=== PATIENT | female | born 1955 | race Hispanic/Latino ===

== ENCOUNTER 2017-06-07 15:00 | Inpatient (IN) | payer BC ==
--- NOTE | 2017-06-07 15:25 | ED PDOC ---
Arrival/HPI - General Chief Complaint: Trauma Time Seen by Provider: 06/07/17 15:00 - History of Present Illness Narrative History of Present Illness (Text): 61 y/o F c PMHx neuropathy, constipation p/w R hip pain s/p fall 1 hour ago. Patient tripped over uneven sidewalk onto R side. Denies headstrike, LOC, dizziness, dyspnea. Patient initially refused EMS transport to hospital and kept her ENT follow up after a nasal surgery. After check up, patient's pain was persistent and worse and an ambulance was recalled and patient brought to ED. Past Medical History - Pulmonary Hx Asthma: Yes - Endocrine/Metabolic Hx Diabetes Mellitus Type 1: Yes - Psychiatric Hx Substance Use: No - Anesthesia Hx Anesthesia: No Hx Anesthesia Reactions: No Hx Malignant Hyperthermia: No Family/Social History Family/Social History: Unknown Family HX Smoking Status: Never Smoked Hx Alcohol Use: No Hx Substance Use: No Allergies/Home Meds Allergies/Adverse Reactions: Allergies codeine Allergy (Verified 06/07/17 15:19) ANAPHYLAXIS Sulfa (Sulfonamide Antibiotics) Allergy (Verified 06/07/17 15:19) ANAPHYLAXIS Review of Systems - Physician Review All systems were reviewed & negative as marked: Yes - Review of Systems Constitutional: absent: Fevers Eyes: absent: Vision Changes Respiratory: absent: SOB Cardiovascular: absent: Chest Pain Gastrointestinal: absent: Vomiting Physical Exam - Physical Exam Narrative Physical Exam (Text): Gen: NAD Head: Atraumatic Eyes: No hymphema ENT: MMM Neck: FROM, no midline tenderness Ches: No clavicular tenderness CV: Regular rate, radial pulses 2+ Lungs: No accessory muscle use Abd: Soft, NT Extremities: Pelvis stable. No deformity. FROM knees and ankles. R hip tenderness. Skin: R knee abrasion. Neuro: Alert. Moves all extremities. Vital Signs Temp Pulse Resp BP Pulse Ox 06/07/17 15:08 97.9 F 94 H 18 149/79 100 Medical Decision Making ED Course and Treatment: Patient requested oral pain medications. XR shows R intertroch fracture. Dr. Chavarria accepts patient to her service, recommends Dr. Loya for Ortho. Dr. Loya accepts consultation. - Lab Interpretations Lab Results: 06/07/17 15:00 06/07/17 15:00 Lab Results 06/07/17 15:00: Sodium 135, Potassium 4.4, Chloride 96 L, Carbon Dioxide 32, Anion Gap 12, BUN 17, Creatinine 0.6 L, Est GFR ( Amer) > 60, Est GFR ( Non-Af Amer) > 60, Random Glucose 330 H*, Calcium 9.8, Total Bilirubin 0.5, AST 27, ALT 34, Alkaline Phosphatase 149 H, Total Protein 7.4, Albumin 3.8, Globulin 3.6, Albumin/Globulin Ratio 1.1 06/07/17 15:00: WBC 8.1, RBC 4.83, Hgb 14.3, Hct 42.3, MCV 87.6, MCH 29.6, MCHC 33.8, RDW 13.2, Plt Count 246, MPV 10.2, Gran % 67.1, Lymph % (Auto) 23.9, [place] % (Auto) 5.7, Eos % (Auto) 2.7, Baso % (Auto) 0.6, Gran # 5.43, Lymph # (Auto) 1.9, [place] # (Auto) 0.5, Eos # (Auto) 0.2, Baso # (Auto) 0.05 - RAD Interpretation Radiology Orders: 06/07/17 15:21 HIP MIN 2V W/ PELVIS RT [RAD] Stat 06/07/17 16:32 CHEST PORTABLE [RAD] Stat - Medication Orders Current Medication Orders: Discontinued Medications Acetaminophen (Tylenol 325mg Tab) 650 mg PO STAT STA Stop: 06/07/17 15:22 Last Admin: 06/07/17 16:05 Dose: 650 mg [facility] Pain/Vitals Document 06/07/17 16:05 EQ (Rec: 06/07/17 16:05 EQ [id number]) Pain Reassessment Is This A Pain ReAssessment? No Sleep Is patient sleeping during reassessment? No Presence of Pain Presence of Pain Yes Pain Scale Used Pain Scale Used Numeric Ibuprofen (Motrin Tab) 400 mg PO STAT STA Stop: 06/07/17 15:22 Last Admin: 06/07/17 16:05 Dose: 400 mg [facility] Pain/Vitals Document 06/07/17 16:05 EQ (Rec: 06/07/17 16:05 EQ [id number]) Pain Reassessment Is This A Pain ReAssessment? No Sleep Is patient sleeping during reassessment? No Presence of Pain Presence of Pain Yes Pain Scale Used Pain Scale Used Numeric Disposition/Present on Arrival - Present on Arrival Any Indicators Present on Arrival: No History of DVT/PE: No History of Uncontrolled Diabetes: No Urinary Catheter: No History of Decub. Ulcer: No History Surgical Site Infection Following: None - Disposition Have Diagnosis and Disposition been Completed?: Yes Diagnosis: Fracture, intertrochanteric, right femur Disposition: HOSPITALIZED Disposition Time: 16:25 Patient Plan: Admission Condition: GUARDED Referrals: Devi Chavarria MD [Primary Care Provider] - Follow up with primary Forms: [employer] (Croatian)
[2017-06-07 15:51] LABS: BASO # 0.05 K/mm3 (0.0-2.0); BASO % 0.6 % (0.0-3.0); EOS # 0.2 (0.0-0.7); EOS % 2.7 % (1.5-5.0); GRAN # 5.43 (1.4-6.5); GRAN % 67.1 % (50.0-68.0); HEMOGLOBIN 14.3 g/dL (12.0-16.0); LYMPH # 1.9 (1.2-3.4); LYMPH % 23.9 % (22.0-35.0); MEAN CELL VOLUME 87.6 fl (80.0-105.0); MEAN CORPUSCULAR HEMOGLOBIN 29.6 pg (25.0-35.0); MEAN CORPUSCULAR HGB CONC 33.8 g/dl (31.0-37.0); MEAN PLATELET VOLUME 10.2 fl (7.0-11.0); MONO # 0.5 (0.1-0.6); MONO % 5.7 % (1.0-6.0); RBC 4.83 10^6/uL (3.5-6.1); RED CELL DISTRIBUTION WIDTH 13.2 % (11.5-14.5); WHITE BLOOD COUNT 8.1 10^3/ul (4.5-11.0)
[2017-06-07 16:13] LABS: ALB/GLOB RATIO 1.1 (1.1-1.8); ALBUMIN 3.8 g/dL (3.0-4.8); ALT/SGPT 34 U/L (7-56); AST/SGOT 27 U/L (14-36); BLOOD UREA NITROGEN 17 mg/dL (7-21); CALCIUM 9.8 mg/dL (8.4-10.5); GFR AFRICAN-AMERICAN > 60; GFR NON-AFRICAN AMERICAN > 60
--- NOTE | 2017-06-07 16:29 | RAD ---
PROCEDURE: Right Hip Radiographs. HISTORY: fall, hip pain COMPARISON: None. FINDINGS: BONES: There is a transverse intertrochanteric fracture of the right hip. There is minimal displacement JOINTS: Normal. SOFT TISSUES: Normal. OTHER FINDINGS: None. IMPRESSION: There is a transverse intertrochanteric fracture of the right hip. There is minimal displacement
[2017-06-07] MEDS ORDERED: Morphine 2 mg/ml ISec IVP PRN (17:17)
[2017-06-07 17:48] LABS: INR 0.94 (0.93-1.08); PARTIAL THROMBOPLASTIN TIME 25.3 Seconds (25.1-36.5); PROTHROMBIN TIME 10.7 SECONDS (9.4-12.5)
[2017-06-07] MEDS: Insulin Lispro (humaLOG) MIX 75/25(10 ml) SC SCH (20:30)
[2017-06-07 22:14] VITALS: BMI 32.3
[2017-06-07] MEDS ORDERED: Pneumococcal 23-Valent Vaccine IM ONE (22:14)
[2017-06-07] MEDS ORDERED: Influenza Vaccine 60 mcg/0.5 mL SYR (4YR UP) IM ONE (22:14)
[2017-06-07 22:20] LABS: URINE BILIRUBIN NEGATIVE (NEGATIVE); URINE BLOOD NEGATIVE (NEGATIVE); URINE GLUCOSE (UA) >=1000 mg/dL (NEGATIVE); URINE LEUKOCYTE ESTERASE NEGATIVE Leu/uL (NEGATIVE); URINE PROTEIN NEGATIVE mg/dL (<30 mg/dL); URINE UROBILINOGEN 0.2 E.U./dL (<1 E.U./dL)
[2017-06-07 22:21] LABS: URINE APPEARANCE CLEAR (CLEAR); URINE COLOR YELLOW (YELLOW)
[2017-06-08] MEDS: Insulin Lispro (HUMAlog) HIGH Coverage SC SCH ×6 (01:10→22:00)
--- NOTE | 2017-06-08 01:21 | CON ---
DATE: 06/07/2017 REASON FOR CONSULT: Right hip fracture. HISTORY OF PRESENT ILLNESS: This is a 61-year-old female who is status post fall with right hip pain and inability to ambulate. The patient states that she did have right hip pain in the past. She states that she was walking and the sidewalk was slightly uneven and she tripped falling on her right side. Subsequently, she was brought via EMS to the emergency department for further evaluation and treatment. She denied any other injuries. PAST MEDICAL HISTORY: Significant for diabetes, some peripheral neuropathy, also gastroparesis. PHYSICAL EXAMINATION: GENERAL: This is a female, in no apparent distress. She is awake, alert, and oriented x3. EXTREMITIES: On examination of the right hip, she has pain with passive range of motion of the right hip. Her thigh is soft and nontender. No femoral crepitus is appreciated. Her knee shows no obvious effusion; however, there is a very superficial abrasion along the anterolateral aspect of her knee. She is able to passively tolerate some gentle knee flexion and extension without any significant pain. No gross varus or valgus instability. Her calf is soft and nontender. Motor diop, she is intact distally. On sensation, she has some decreased sensation on the plantar aspect of the foot, which again, she states is consistent with neuropathy. On examination of the left lower extremity, she states that she is able to actively flex the hip without any pain. Her thigh is soft and nontender. In the knee, there is no pain with passive or active range of motion of the left knee. Her calf is soft and nontender. NEUROLOGIC: She has intact motor, but has some decreased soft touch in the plantar aspect of the left foot. LABORATORY DATA: X-rays AP pelvis and right hip x-rays are consistent with a mildly displaced intertrochanteric fracture. Of note, some degenerative changes are also noted. IMPRESSION: Right hip intertrochanteric fracture. PLAN: We discussed the treatment options including open reduction and internal fixation as well as hip replacement. Since she does not want to proceed with hip replacement at this time, she does understand that when the fracture heals that she may continue having pain secondary to the hip arthritis and that in the future hip replacement may be warranted. She understands this and for now she wants to proceed with open reduction and internal fixation of the fracture. At this point, we are going to wait for her to be evaluated by the medical team and we will plan on possibly scheduling her and take her to the operating room tomorrow. For now, we are going to have a Willams catheter inserted, keep her nonweightbearing, pain medication as needed. Madi Loya MD
--- NOTE | 2017-06-08 06:02 | HP ---
HISTORY OF PRESENT ILLNESS: The patient is a 61-year-old known to me from office practice. The patient had a mechanical fall almost by the end of this March. At that point, she was where she was taken to the hospital, had plastic surgeries done for her nasal fracture. Since then, the patient has been having some sinus issues, having shortness of breath, nasal puffiness, difficulty breathing. So, she made an appointment with . She was getting out of his office, walking on the side road that was uneven, she tripped and she fell and sustained fracture of her right femur. She was unable to walk, so ambulance was called. She was brought to emergency room. Denies any dizziness, no loss of consciousness, no headache, no blurry vision. PAST MEDICAL HISTORY: Significant for: 1. Insulin-dependent diabetes. 2. Hypertension. 3. Diabetic neuropathy. 4. History of colonic inertia and chronic constipation. 5. History of recurrent sinus infection. 6. History of recurrent UTI. ALLERGIES: SHE IS ALLERGIC TO CODEINE AND SULFA MEDICATION. MEDICATION AT HOME: She is on insulin, she takes Micardis 40 mg daily, Miralax 17 gm daily, Singulair 10 mg daily. PAST SURGICAL HISTORY: Significant for: 1. Tonsillectomy. 2. History of cholecystectomy. 3. Bilateral feet surgeries. 4. History of right parotid gland surgery. SOCIAL HISTORY: She is , lives with her . Denies smoking, drinking, or alcohol. REVIEW OF SYSTEMS: Significant for chronic constipation, chronic recurrent sinusitis, and recurrent UTI. PHYSICAL EXAMINATION: GENERAL: She is awake and alert, able to communicate. VITAL SIGNS: She is afebrile, pulse 86, respirations 18, blood pressure 114/71. LUNGS: Bilateral good airflow. No rhonchi or crackles. LABORATORY DATA: WBC is 8.1, hemoglobin 14, hematocrit 42, platelets 246. PT 10.7, INR 0.94, PTT 25.3. Chemistry: Sodium 135, potassium 4.4, chloride 96, CO2 of 32, BUN 17, creatinine 0.6. Blood sugar of 303, alkaline phosphatase is 149. Urinalysis is unremarkable. X-ray of chest is unremarkable. X-ray of the hip shows transverse intertrochanteric fracture of the right hip with minimal displacement. ASSESSMENT: 1. Status post fall. 2. Right intertrochanteric fracture. 3. Insulin-dependent diabetes. 4. Hypertension. 5. Chronic constipation. PLAN: The patient is going to be admitted. We will give her analgesic. Was evaluated by Dr. Loya and scheduled to have surgery done tomorrow. Devi Chavarria MD
[2017-06-08] MEDS: Insulin Lispro (humaLOG) MIX 75/25(10 ml) SC SCH (08:00)
--- NOTE | 2017-06-08 09:17 | RAD ---
HISTORY: hip fracture COMPARISON: No prior. FINDINGS: LUNGS: No active pulmonary disease. PLEURA: No significant pleural effusion identified, no pneumothorax apparent. CARDIOVASCULAR: Normal. OSSEOUS STRUCTURES: No significant abnormalities. VISUALIZED UPPER ABDOMEN: Normal. OTHER FINDINGS: None. IMPRESSION: No active disease.
[2017-06-08 09:55] LABS: HEMOGLOBIN 12.5 g/dL (12.0-16.0); MEAN CELL VOLUME 86.8 fl (80.0-105.0); MEAN CORPUSCULAR HEMOGLOBIN 28.5 pg (25.0-35.0); MEAN CORPUSCULAR HGB CONC 32.9 g/dl (31.0-37.0); MEAN PLATELET VOLUME 10.3 fl (7.0-11.0); RBC 4.38 10^6/uL (3.5-6.1); RED CELL DISTRIBUTION WIDTH 13.1 % (11.5-14.5); WHITE BLOOD COUNT 9.7 10^3/ul (4.5-11.0)
[2017-06-08] MEDS ORDERED: POLYETHYLENE GLYCOL 3350 17 GM/Dose PACKET PO SCH (10:00)
[2017-06-08] MEDS ORDERED: Bacitracin 500 Units/gm Oint Foilpak UD ONE (10:05)
[2017-06-08] MEDS: Magnesium Hydroxide Susp 30 ml UD PO PRN (10:08)
[2017-06-08] MEDS: Bisacodyl 5mg EC Tab PO SCH (10:08)
[2017-06-08] MEDS: POLYETHYLENE GLYCOL 3350 17 GM/Dose PACKET PO SCH ×2 (10:08→18:16)
[2017-06-08 10:13] LABS: BLOOD UREA NITROGEN 13 mg/dL (7-21); CALCIUM 9.1 mg/dL (8.4-10.5); GFR AFRICAN-AMERICAN > 60; GFR NON-AFRICAN AMERICAN > 60
[2017-06-08] MEDS: Fluticasone Nasal 50 mcg/Spray NS SCH (10:36)
--- NOTE | 2017-06-08 14:23 | PN ---
DATE: SUBJECTIVE: The patient is 61 years old, seen and examined, lying in bed. Seems to be comfortable. She is worried with the upcoming procedure. Denies any chest pain. No shortness of breath. Right leg hurts upon movement. PHYSICAL EXAMINATION: VITAL SIGNS: She is afebrile, pulse 100, respirations 20, blood pressure 114/71. LUNGS: Bilateral good airflow. No rhonchi or crackle. HEART: S1 and S2 audible. ABDOMEN: Soft. Nontender. No rebound. No guarding. NEUROLOGIC: The patient is awake, alert, oriented, communicative. LABORATORY EXAM: WBC is 9.7, hemoglobin 12.5, hematocrit 38, platelet 218. PT 10.7, INR 0.94. Chemistry: Sodium 136, potassium 4.0, chloride 101, CO2 of 27, BUN 13, creatinine 0.6, blood sugar of 288. Urinalysis is unremarkable. ASSESSMENT: 1. Status post mechanical fall, status right intertrochanteric fracture. 2. Insulin-dependent diabetes. 3. Chronic constipation. 4. Pelvic inertia. PLAN: We will start the patient on Levemir 50 units at bedtime and rest of it will be as needed coverage. The patient is currently n.p.o., evaluated by Cardiology and the patient is going for open reduction and internal fixation today. The patient lives in [place]. She prefers to have rehab place close to [place]. Devi Chavarria MD
[2017-06-08] MEDS ORDERED: Bupivacaine 0.5% Inj(30mL) ONE (14:25)
[2017-06-08] MEDS ORDERED: Propofol 10 mg/ml Inj (20 ML) ONE (14:41)
[2017-06-08] MEDS ORDERED: Midazolam 2 MG/2 ML VIAL ONE (14:41)
[2017-06-08] MEDS ORDERED: Rocuronium 10 mg/ml (5 ml) ONE (14:42)
[2017-06-08] MEDS ORDERED: Lidocaine 2% Inj (20ml) ONE (14:42)
[2017-06-08] MEDS ORDERED: Neostigmine Methylsulfate 3mg/3ml Syringe IV ONE (15:17)
[2017-06-08] MEDS ORDERED: Glycopyrrolate 0.2 mg/ml (2ml vial) ONE (15:18)
[2017-06-08] MEDS ORDERED: HYDROmorphone 1 mg/ml ISec IVP PRN (16:00)
[2017-06-08] MEDS ORDERED: oxyCODONE 10 mg Immediate Release Tab PO PRN (16:10)
[2017-06-08] MEDS ORDERED: HYDROmorphone 0.5 mg/0.5 ml ISec IVP PRN (16:16)
[2017-06-08] MEDS ORDERED: DiphenhydrAMINE 50 mg/ml Inj IVP ONE ×2 (16:20→17:36)
[2017-06-08] MEDS ORDERED: Lactated Ringer's 1,000 ML IV SCH (16:30)
[2017-06-08] MEDS ORDERED: HYDROmorphone 1 mg/ml ISec ONE (16:55)
--- NOTE | 2017-06-08 17:17 | RAD ---
PROCEDURE: Fluoroscopy up to 1 hr. HISTORY: O.R.I.F. RT HIP COMPARISON: None TECHNIQUE: Standard protocol for this study/examination. FINDINGS: Total fluoroscopic time (continuous mode) utilized during the procedure: 104.0 seconds. IMPRESSION: Total exam DLP: (mGy) 17.81
[2017-06-08] MEDS ORDERED: DiphenhydrAMINE 50 mg/ml Inj ONE (17:26)
--- NOTE | 2017-06-08 18:44 | RAD ---
PROCEDURE: Radiographs of the pelvis. HISTORY: s/p R ORIF hip fx patient in PACU COMPARISON: Preoperative study 06/07/2017 FINDINGS: BONES: Satisfactory open reduction internal fixation results proximal right femur. OTHER FINDINGS: None. IMPRESSION: Satisfactory postoperative status.
--- NOTE | 2017-06-08 18:54 | OP ---
PROCEDURE DATE: 06/08/2017 PREOPERATIVE DIAGNOSIS: Right hip intertrochanteric fracture. POSTOPERATIVE DIAGNOSIS: Right hip intertrochanteric fracture. PROCEDURE: Open reduction and internal fixation of right hip fracture with intramedullary nail. SURGEON: Madi Loya MD RN SURGICAL PCU: Dr. Loya was assisted by AMADO Perez. Ms. Brandon was scrubbed and present throughout the entire case and assisted in patient positioning on the fracture table, manipulating the extremity as well as wound closure. TYPE OF ANESTHESIA: General. COMPLICATIONS: None. ESTIMATED BLOOD LOSS: 50 mL. IMPLANT: Biomet trochanteric entry nail. INDICATION FOR PROCEDURE: This is a 61-year-old female who presented status post fall with right hip pain. Clinical and radiographic examination was consistent with a right hip intertrochanteric fracture. Recommendations were for open reduction and internal fixation once the patient was medically optimized. The risks, benefits, and alternatives of the procedure were discussed with the patient and informed consent was obtained. DESCRIPTION OF PROCEDURE: After the surgical site was signed and verified in the preoperative holding area, the patient was taken to the operating room and placed supine on the fracture table. After administration of general anesthesia, the patient received 2 g of Ancef IV. The patient's right lower extremity was positioned in the traction boot. The left lower extremity was gently extended away from the field and well padded. At this point, a C-arm was brought in and closed reduction was done and the fracture was evaluated in both the AP and lateral planes. Satisfied, the right lower extremity was prepped and draped in usual sterile fashion. Bony landmarks were identified about the right hip and approximately 3 cm incision was made proximal to the tip of the greater trochanter. Soft tissue was dissected bluntly down to the tip of the trochanter and the guide pin was placed. The guide pin was then inserted into the medullary canal of the proximal femur and this was confirmed using image intensifier in both the AP and lateral planes. Satisfied, a step drill was then used to drill into the medullary canal of the proximal femur. The guide pin was exchanged for a smooth tip guidewire and at this point, a 22 cm nail was then inserted over the guidewire and reassessed to the appropriate depth. Position of the nail as well as the fracture reduction was confirmed using the image intensifier in both AP and lateral planes. Next, through a small incision on the lateral aspect of the proximal thigh, the hip screw was then placed on the lateral cortex of the proximal femur. A guide pin was then inserted into the roughly center-center position of the femoral head, and this confirmed using the C-arm image intensifier. Satisfied with the patient, the length of our screw was measured and the hole for our hip screw was then drilled to the appropriate length. The screw was then inserted over the guide pin and once it was satisfied with the position of the screw, the screw was locked to the nail by screwing down on the set screw on the proximal aspect of the nail. Again, a fracture reduction position of our hardware was confirmed using image intensifier. Finally, through a small incision, mid aspect of the lateral thigh, the nail was locked statistically. The outrigger jig was removed and final x-rays were taken confirming good fracture reduction and good position of the hardware. All our incisions were then copiously irrigated with antibiotic saline solution and closed in a layered fashion. A sterile dressing was applied. The patient was removed from the fracture table, transferred to the stretcher and taken to the recovery room in stable condition. Madi Loya MD
[2017-06-08] MEDS: Insulin Detemir 100 units/ml Vial (Levemir) SC SCH (21:59)
--- NOTE | 2017-06-09 00:09 | CON ---
DATE: 06/08/2017 LOCATION: Room 562, bed 1. REASON FOR CONSULTATION: Fracture of hip, preop cardiac risk stratification, diabetes mellitus, hypertension, diabetic neuropathy, gastroparesis. HISTORY OF PRESENT ILLNESS: The patient is a 61-year-old female who is known diabetic, hypertension, diabetic neuropathy, history of gastroparesis, admitted with a history that she tripped on the side walk and found to have right hip fracture. The patient denies any chest pain, shortness of breath, or palpitation. She denies any prior history of any cardiac problem. She states she used to see a bookbinding machine operator in [place] and few years back, she had a stress test and even she had a cardiac catheterization in the past and she was told is normal, PAST MEDICAL HISTORY: As mentioned above. The patient is known diabetic, hypertension, gastroparesis. She had a tonsillectomy at age 7, gallbladder surgery 30 years ago, hammertoe bilateral on the feet 15 years ago. She had a parotid gland growth for which she had surgery in 2005. PERSONAL HISTORY: No smoking. Drinks socially, very rarely. ALLERGIES: THE PATIENT IS ALLERGIC TO SULFA DRUGS AND CODEINE. FAMILY HISTORY: Father was known diabetic. HOME MEDICATION: Included Micardis 40 mg daily, Singulair 10 mg daily, insulin Lispro 5 units subcutaneously via insulin pump, insulin glargine, Lantus 70 units subcutaneously a.m. and at bedtime. REVIEW OF SYSTEMS: All the systems reviewed, positives mentioned in the history, others were negative. PHYSICAL EXAMINATION: VITAL SIGNS: Blood pressure 125/57, respirations 19, pulse 100, temperature 98.2. HEENT: Head is normocephalic. Eyes: Pupils normal. Conjunctivae normal. Nose and throat normal. NECK: JVP low. Carotids equal. THORAX: AP diameter normal. LUNGS: Clear. CARDIOVASCULAR: S1, S2. ABDOMEN: Soft, nontender. No organomegaly. Bowel sounds are normal. EXTREMITIES: No clubbing. No cyanosis. LABORATORY DATA: WBC 9.7, hemoglobin 12.5, hematocrit 38.0, and platelets 218. Sodium 136, potassium 4.0, BUN 13, creatinine 0.6, random sugar 280. EKG showed sinus tachycardia at 107 per minute, left anterior hemiblock, poor progression of R and V leads, probably related to left anterior hemiblock. Chest x-ray: Clear lungs, normal cardiovascular status, no active disease. Hip and pelvis x-ray showed transverse intertrochanteric fracture of the right hip with minimal displacement. DIAGNOSES: 1. Fracture of hip, transtrochanteric, right hip. 2. Diabetes mellitus. 3. Hypertension. 4. Peripheral neuropathy. 5. Gastroparesis. PLAN: The patient can go for a hip surgery as a moderate risk. Clinically, cardiac status is stable. The patient has sinus tachycardia on admission EKG, probably related to the pain. The patient is on insulin. We will monitor blood pressure. If it goes up, we will treat. Because the patient is resting at this moment, so pressure may be stayed normal. Continue analgesics. Postop, patient will be on Lovenox. We will follow with you. Iliana Blum MD
[2017-06-09 07:11] LABS: BASO # 0.03 K/mm3 (0.0-2.0); BASO % 0.3 % (0.0-3.0); EOS # 0.4 (0.0-0.7); EOS % 3.6 % (1.5-5.0); GRAN # 8.66 (1.4-6.5); GRAN % 74.3 % (50.0-68.0); HEMOGLOBIN 12.6 g/dL (12.0-16.0); LYMPH # 1.8 (1.2-3.4); LYMPH % 15.4 % (22.0-35.0); MEAN CORPUSCULAR HEMOGLOBIN 29.2 pg (25.0-35.0); MEAN CORPUSCULAR HGB CONC 33.6 g/dl (31.0-37.0); MEAN PLATELET VOLUME 10.2 fl (7.0-11.0); MONO # 0.8 (0.1-0.6); MONO % 6.4 % (1.0-6.0); RBC 4.31 10^6/uL (3.5-6.1); RED CELL DISTRIBUTION WIDTH 13.4 % (11.5-14.5); WHITE BLOOD COUNT 11.7 10^3/ul (4.5-11.0)
[2017-06-09 07:20] LABS: ALBUMIN 3.1 g/dL (3.0-4.8); ALT/SGPT 33 U/L (7-56); AST/SGOT 21 U/L (14-36); BLOOD UREA NITROGEN 12 mg/dL (7-21); CALCIUM 8.9 mg/dL (8.4-10.5); GFR AFRICAN-AMERICAN > 60; GFR NON-AFRICAN AMERICAN > 60
[2017-06-09] MEDS ORDERED: ceFAZolin 2 GM in Sodium Chloride 0.9% 100 ML IVPB SCH ×3 (08:33→14:00)
[2017-06-09] MEDS: Insulin Lispro (HUMAlog) HIGH Coverage SC SCH ×4 (08:55→22:10)
--- NOTE | 2017-06-09 09:19 | CARD ---
APPROVED REPORT EXAM: Two-dimensional and M-mode echocardiogram with Doppler and color Doppler. Other Information Quality : PoorRhythm : INDICATION Pre-Op 2D DIMENSIONS Left Atrium (2D)4.3 (1.6-4.0cm)IVSd1.2 (0.7-1.1cm) LVDd2.7 (3.9-5.9cm)PWd1.2 (0.7-1.1cm) LVDs2.0 (2.5-4.0cm)FS (%) 24.4 % LVEF (%)50.0 (>50%) M-Mode DIMENSIONS Aortic Root3.00 (2.2-3.7cm)Aortic Cusp Exc.1.20 (1.5-2.0cm) Aortic Valve AoV Peak Exlxbvgg178.0cm/Jacinto Peak GR.8mmHg Mitral Valve E/A ratio0.0 TDI E/Lateral E'0.0E/Medial E'0.0 Tricuspid Valve TR Peak [id number] [id number] Peak Gr.17mmHg [id number] LEFT VENTRICLE The left ventricle is normal size. There is normal left ventricular wall thickness. The left ventricular function is normal. The left ventricular ejection fraction is within the normal range. There is normal LV segmental wall motion. RIGHT VENTRICLE The right ventricle is not well visualized. ATRIA The left atrium is mildly dilated. The right atrium is not well visualized. AORTIC VALVE The aortic valve is moderately calcified. MITRAL VALVE The mitral valve is normal in structure. TRICUSPID VALVE The tricuspid valve is not well visualized. There is trace to mild tricuspid regurgitation. PULMONIC VALVE The pulmonic valve is not well visualized. GREAT VESSELS The aortic root is normal in size. PERICARDIAL EFFUSION There is no pericardial effusion. <Conclusion> This is a very limited study done on supine patient with hip fracture. The left ventricle is normal size. There is normal left ventricular wall thickness. The left ventricular function is normal. The aortic valve is moderately calcified. Aortic sclerosis.
--- NOTE | 2017-06-09 10:00 | CP.PCM.PN ---
Subjective - Date & Time of Evaluation Date of Evaluation: 06/09/17 Time of Evaluation: 09:51 - Subjective Subjective: Patient POD#1 s/p ORIF right hip fx with IM nail. Patient is alert and awake and laying comfortably in bed. Patient states pain is controlled. Pt afebrile WBC 11.7 Hgb 12.6 R hip: dressings dry and intact. Patient tolerating active plantar and dorsi flexion of the right ankle with 5/5 strength. Limp length discrepancy is equal. Patient denies any pain with light passive internal and external rotation of the right hip. Calf is soft nontender. NVI distally POD#1 s/p ORIF right hip fx with IM nail Cont DVT prophylaxis Cont PT with WBAT Cont incentive spirometer Will do dressings changes tomorrow Objective - Vital Signs/Intake and Output Vital Signs (last 24 hours): Temp Pulse Resp BP Pulse Ox 98.3 F 108 H 20 112/62 94 L 06/09/17 07:30 06/09/17 07:30 06/09/17 07:30 06/09/17 07:30 06/09/17 07:30 Intake and Output: 06/09/17 06/09/17 06:59 18:59 Intake Total 1380 Output Total 500 Balance 880 - Medications Medications: Current Medications Acetaminophen (Tylenol 325mg Tab) 650 mg PO Q4H PRN PRN Reason: Pain, Mild (1-3) Last Admin: 06/09/17 07:01 Dose: 650 mg Bisacodyl (Dulcolax) 5 mg PO DAILY [facility] Last Admin: 06/08/17 10:08 Dose: 5 mg Enoxaparin Sodium (Lovenox) 40 mg SC 1400 TIN PRN Reason: Protocol Fluticasone Propionate (Flonase) 1 actuation NS DAILY [facility] Last Admin: 06/08/17 10:36 Dose: 1 spr Hydromorphone HCl (Dilaudid) 1 mg IVP Q3H PRN PRN Reason: Pain, severe (8-10) Cefazolin Sodium 2 gm/ Sodium (Chloride) 100 mls @ 200 mls/hr IVPB Q8H TIN PRN Reason: Protocol Stop: 06/09/17 17:30 Insulin Detemir (Levemir) 15 unit SC [facility] Last Admin: 06/08/17 21:59 Dose: 15 unit Insulin Human Lispro (Humalog High) 0 units SC ACHS [facility] PRN Reason: Protocol Last Admin: 06/09/17 08:55 Dose: 7 units Magnesium Hydroxide (Milk Of Magnesia) 30 ml PO DAILY PRN PRN Reason: Indigestion Last Admin: 06/08/17 10:08 Dose: 30 ml Montelukast Sodium (Singulair) 10 mg PO DAILY [facility] Last Admin: 06/08/17 10:11 Dose: 10 mg Morphine Sulfate (Morphine) 2 mg IVP Q4H PRN PRN Reason: Pain, moderate (4-7) Oxycodone HCl (Oxycodone Immediate Release Tab) 10 mg PO Q6H PRN PRN Reason: Pain, moderate (4-7) Polyethylene Glycol (Miralax) 17 gm PO BID [facility] Last Admin: 06/08/17 18:16 Dose: 17 gm Sodium Chloride ([place] Nasal [place]) 0 ml NS Q4H [facility] Last Admin: 06/09/17 08:56 Dose: 1 spr - Labs Labs: 06/09/17 06:20 06/09/17 06:20 PT 10.7 SECONDS (9.4-12.5) 06/07/17 14:30 INR 0.94 (0.93-1.08) 06/07/17 14:30 APTT 25.3 Seconds (25.1-36.5) 06/07/17 14:30
--- NOTE | 2017-06-09 10:50 | CARD ---
APPROVED REPORT EKG Measurement Heart [id number] <Conclusion> Sinus tachycardia Left axis deviation PRWP NSSTW changes Prolonged QTc
[2017-06-09] MEDS: Bisacodyl 5mg EC Tab PO SCH (11:09)
[2017-06-09] MEDS: Fluticasone Nasal 50 mcg/Spray NS SCH (11:09)
[2017-06-09] MEDS: POLYETHYLENE GLYCOL 3350 17 GM/Dose PACKET PO SCH ×2 (11:10→18:03)
[2017-06-09] MEDS: Enoxaparin 40 mg Syringe SC SCH (13:48)
--- NOTE | 2017-06-09 21:21 | PN ---
DATE: 06/09/2017 SUBJECTIVE: The patient has no complaints of any chest pain. No shortness of breath. She states her pain is controlled. She is not taking narcotics. OBJECTIVE: VITAL SIGNS: Temperature is 98.3, pulse of 108, blood pressure is 112/62, respirations 20. GENERAL: The patient is lying in bed, flat, comfortable. HEENT: No oral lesion. Anicteric sclerae. Moist mucosa. NECK: No JVD, adenopathy, or thyromegaly. CARDIOVASCULAR: S1 and S2, regular. No murmurs, rubs, or gallops. LUNGS: Clear to auscultation bilaterally. No wheeze, rales, or rhonchi. ABDOMEN: Bowel sounds are positive, soft, nontender and nondistended. EXTREMITIES: No cyanosis, clubbing or edema. LABORATORY DATA: White count of 11.7, hemoglobin is 12.6. ASSESSMENT: 1. Right intertrochanteric hip fracture, status post open reduction and internal fixation, postop day #1. 2. Diabetes type 2. 3. Chronic constipation. 4. Pelvic inertia. PLAN: The patient is currently comfortable. She is on antibiotics with Ancef. I will discontinue the Ancef as this was for preop. The patient is on bacitracin. She is going to continue with Dilaudid for severe pain if she requires. The patient is on Lovenox for DVT prophylaxis and Levemir for diabetes. She is going to continue with magnesium. She is on MiraLax for constipation. She is on ibuprofen and she does not wish to use narcotics. She is on Singulair. She is going to continue with this. She will most likely need subacute rehab. Alex Jacobson MD
[2017-06-09] MEDS: Insulin Detemir 100 units/ml Vial (Levemir) SC SCH (22:12)
[2017-06-10 07:29] LABS: BASO # 0.05 K/mm3 (0.0-2.0); BASO % 0.6 % (0.0-3.0); EOS # 0.4 (0.0-0.7); EOS % 4.9 % (1.5-5.0); GRAN # 5.84 (1.4-6.5); GRAN % 65.9 % (50.0-68.0); HEMOGLOBIN 11.4 g/dL (12.0-16.0); LYMPH # 1.8 (1.2-3.4); LYMPH % 19.8 % (22.0-35.0); MEAN CELL VOLUME 86.5 fl (80.0-105.0); MEAN CORPUSCULAR HGB CONC 33.5 g/dl (31.0-37.0); MEAN PLATELET VOLUME 10.6 fl (7.0-11.0); MONO # 0.8 (0.1-0.6); MONO % 8.8 % (1.0-6.0); RBC 3.93 10^6/uL (3.5-6.1); RED CELL DISTRIBUTION WIDTH 13.4 % (11.5-14.5); WHITE BLOOD COUNT 8.9 10^3/ul (4.5-11.0)
[2017-06-10 08:03] LABS: ALB/GLOB RATIO 0.9 (1.1-1.8); ALBUMIN 2.9 g/dL (3.0-4.8); ALT/SGPT 30 U/L (7-56); AST/SGOT 16 U/L (14-36); BLOOD UREA NITROGEN 13 mg/dL (7-21); CALCIUM 9.1 mg/dL (8.4-10.5); GFR AFRICAN-AMERICAN > 60; GFR NON-AFRICAN AMERICAN > 60
[2017-06-10] MEDS: Insulin Lispro (HUMAlog) HIGH Coverage SC SCH ×4 (08:03→21:42)
[2017-06-10] MEDS: Fluticasone Nasal 50 mcg/Spray NS SCH (09:29)
[2017-06-10] MEDS: Bacitracin 500 Units/gm Oint Foilpak UD TOP SCH (09:29)
[2017-06-10] MEDS: Bisacodyl 5mg EC Tab PO SCH (09:29)
[2017-06-10] MEDS: POLYETHYLENE GLYCOL 3350 17 GM/Dose PACKET PO SCH ×2 (09:29→17:12)
[2017-06-10] MEDS: Enoxaparin 40 mg Syringe SC SCH (14:30)
--- NOTE | 2017-06-10 16:19 | PN ---
DATE: 06/10/2017 SUBJECTIVE: The patient has no complaints of any chest pain, no shortness of breath. No headaches or dizziness. She says the pain is better controlled. She is asking for tramadol for pain. PHYSICAL EXAMINATION VITAL SIGNS: Temperature is 97.8, pulse of 96, blood pressure 117/72, respirations 21. GENERAL: The patient is lying in bed, flat, comfortable. HEENT: No oral lesion. Anicteric sclerae. Moist mucosa. NECK: No JVD, adenopathy, or thyromegaly. CARDIOVASCULAR: S1 and S2, regular. No murmurs, rubs, or gallops. LUNGS: Clear to auscultation bilaterally. No wheeze, rales, or rhonchi. ABDOMEN: Bowel sounds are positive, soft, nontender and nondistended. EXTREMITIES: No cyanosis, clubbing or edema. LABORATORY DATA: White count of 8.9, hemoglobin 11.4, creatinine is 0.6. ASSESSMENT: 1. Right intertrochanteric hip fracture, status post open reduction and internal fixation postoperative day #2. 2. Diabetes type 2. 3. Chronic constipation. 4. Colonic inertia. PLAN: The patient is on bacitracin. She is going to continue with Dilaudid for pain. She is receiving Levemir for her diabetes type 2. She is on Lovenox for DVT prophylaxis. She is on ibuprofen. She says she does not wish to take morphine. I will discontinue the patient's morphine because she does not want to cause herself to have constipation. She is going to be placed on tramadol for pain. She is going to be on a heart-healthy diet. She will most likely need subacute rehab. Alex Jacobson MD
[2017-06-10] MEDS: Insulin Detemir 100 units/ml Vial (Levemir) SC SCH (21:42)
--- NOTE | 2017-06-11 07:02 | CP.PCM.PN ---
Subjective - Date & Time of Evaluation Date of Evaluation: 06/11/17 Time of Evaluation: 06:15 - Subjective Subjective: Seen and examined by Dr. Blum Reason for consult and follow up: cardiac evaluation for hip surgery, hypertension, diabetes mellitus, diabetic neuropathy,gastroparesis. Subjective: disappointed with physical therapy, however feels okay, denies chest pain, denies shortness of breath, mild tolerable pain at right hip, surgical site. Objective - Vital Signs/Intake and Output Vital Signs (last 24 hours): Temp Pulse Resp BP Pulse Ox 97.9 F 99 H 18 117/72 97 06/10/17 14:30 06/10/17 14:30 06/10/17 14:30 06/10/17 14:30 06/10/17 14:30 Intake and Output: 06/10/17 06/11/17 18:59 06:59 Intake Total 1920 Output Total 1900 Balance 20 - Medications Medications: Current Medications Acetaminophen (Tylenol 325mg Tab) 650 mg PO Q4H PRN PRN Reason: Pain, Mild (1-3) Last Admin: 06/09/17 07:01 Dose: 650 mg Bacitracin (Bacitracin) 1 ea TOP DAILY [facility] Last Admin: 06/10/17 09:29 Dose: 1 ea Bisacodyl (Dulcolax) 5 mg PO DAILY [facility] Last Admin: 06/10/17 09:29 Dose: 5 mg Enoxaparin Sodium (Lovenox) 40 mg SC 1400 TIN PRN Reason: Protocol Last Admin: 06/10/17 14:30 Dose: 40 mg Fluticasone Propionate (Flonase) 1 actuation NS DAILY [facility] Last Admin: 06/10/17 09:29 Dose: 1 spr Hydromorphone HCl (Dilaudid) 1 mg IVP Q3H PRN PRN Reason: Pain, severe (8-10) Ibuprofen (Motrin Tab) 600 mg PO Q4H PRN PRN Reason: Pain, moderate (4-7) Last Admin: 06/11/17 03:53 Dose: 600 mg Insulin Detemir (Levemir) 15 unit SC HS [facility] Last Admin: 06/10/17 21:42 Dose: 15 unit Insulin Human Lispro (Humalog High) 0 units SC ACHS [facility] PRN Reason: Protocol Last Admin: 06/10/17 21:42 Dose: 3 units Magnesium Hydroxide (Milk Of Magnesia) 30 ml PO DAILY PRN PRN Reason: Indigestion Last Admin: 06/08/17 10:08 Dose: 30 ml Montelukast Sodium (Singulair) 10 mg PO DAILY [facility] Last Admin: 06/10/17 09:29 Dose: 10 mg Oxycodone HCl (Oxycodone Immediate Release Tab) 10 mg PO Q6H PRN PRN Reason: Pain, moderate (4-7) Polyethylene Glycol (Miralax) 17 gm PO BID [facility] Last Admin: 06/10/17 17:12 Dose: 17 gm Sodium Chloride ([place] Nasal [place]) 0 ml NS Q4H [facility] Last Admin: 06/11/17 03:51 Dose: Not Given Tramadol HCl (Ultram) 50 mg PO Q6 PRN PRN Reason: Pain, severe (8-10) Last Admin: 06/10/17 17:56 Dose: 50 mg - Labs Labs: 06/10/17 07:00 06/10/17 07:00 PT 10.7 SECONDS (9.4-12.5) 06/07/17 14:30 INR 0.94 (0.93-1.08) 06/07/17 14:30 APTT 25.3 Seconds (25.1-36.5) 06/07/17 14:30 - Constitutional Appears: Well, No Acute Distress - Head Exam Head Exam: NORMAL INSPECTION - Eye Exam Eye Exam: Normal appearance Pupil Exam: NORMAL ACCOMODATION - ENT Exam ENT Exam: Mucous Membranes Moist, Normal Exam - Respiratory Exam Respiratory Exam: Clear to Ausculation Bilateral, NORMAL BREATHING PATTERN - Cardiovascular Exam Cardiovascular Exam: REGULAR RHYTHM, +S1, +S2 - GI/Abdominal Exam GI & Abdominal Exam: Soft, Normal Bowel Sounds - Extremities Exam Extremities Exam: Normal Capillary Refill Additional comments: right hip surgery, dressing dry and intact,no bleeding/hematoma,limited movement - Neurological Exam Neurological Exam: Alert, Awake, Oriented x3 - Psychiatric Exam Psychiatric exam: Normal Affect, Normal Mood - Skin Skin Exam: Intact, Normal Color, Warm Assessment and Plan - Assessment and Plan (Free Text) Assessment: IMPRESSION:Admitted for right hip fracture post fall, status post open reduction and internal fixation of right hip, history of hypertension, insulin dependent diabetes mellitus, diabetic neuropathy, gastroparesis, Plan: Doing well post right hip surgery CArdiac status stable Blood pressure and heart rate well controlled Will monitor and start antihypertensive medications as needed On Lovenox 40 mg daily. Aggresive physical therapy Pain medicine prior to physical therapy Will follow Plan and treatment reviewed with Dr. Blum
[2017-06-11 07:12] LABS: BASO # 0.04 K/mm3 (0.0-2.0); BASO % 0.5 % (0.0-3.0); EOS # 0.3 (0.0-0.7); GRAN # 5.89 (1.4-6.5); GRAN % 69.2 % (50.0-68.0); HEMOGLOBIN 10.7 g/dL (12.0-16.0); LYMPH # 1.4 (1.2-3.4); LYMPH % 16.7 % (22.0-35.0); MEAN CELL VOLUME 86.4 fl (80.0-105.0); MEAN CORPUSCULAR HEMOGLOBIN 28.5 pg (25.0-35.0); MEAN PLATELET VOLUME 10.4 fl (7.0-11.0); MONO # 0.8 (0.1-0.6); MONO % 9.6 % (1.0-6.0); RBC 3.75 10^6/uL (3.5-6.1); RED CELL DISTRIBUTION WIDTH 13.3 % (11.5-14.5); WHITE BLOOD COUNT 8.5 10^3/ul (4.5-11.0)
[2017-06-11 07:56] LABS: ALT/SGPT 24 U/L (7-56); AST/SGOT 18 U/L (14-36); BLOOD UREA NITROGEN 13 mg/dL (7-21); CALCIUM 8.8 mg/dL (8.4-10.5); GFR AFRICAN-AMERICAN > 60; GFR NON-AFRICAN AMERICAN > 60
[2017-06-11 08:07] VITALS: PULSE 98; RESP 20
[2017-06-11] MEDS: Insulin Lispro (HUMAlog) HIGH Coverage SC SCH ×3 (08:30→17:00)
--- NOTE | 2017-06-11 08:34 | CP.PCM.PN ---
Subjective - Date & Time of Evaluation Date of Evaluation: 06/11/17 Time of Evaluation: 08:32 - Subjective Subjective: Pt awake and alert. Pt states she hasn't gotten physical therapy. Afebrile, VSS R hip: dressing changed incisions clean and dry thigh soft, NT grossly NVI (no change from preop) Hg 10.7 POD#3 stable PT D/c planning to rehab Objective - Vital Signs/Intake and Output Vital Signs (last 24 hours): Temp Pulse Resp BP Pulse Ox 98.8 F 98 H 20 137/67 96 06/11/17 07:30 06/11/17 07:30 06/11/17 07:30 06/11/17 07:30 06/11/17 07:30 Intake and Output: 06/11/17 06/11/17 06:59 18:59 Intake Total 1920 Output Total 1900 Balance 20 - Medications Medications: Current Medications Acetaminophen (Tylenol 325mg Tab) 650 mg PO Q4H PRN PRN Reason: Pain, Mild (1-3) Last Admin: 06/09/17 07:01 Dose: 650 mg Bacitracin (Bacitracin) 1 ea TOP DAILY [facility] Last Admin: 06/10/17 09:29 Dose: 1 ea Bisacodyl (Dulcolax) 5 mg PO DAILY [facility] Last Admin: 06/10/17 09:29 Dose: 5 mg Enoxaparin Sodium (Lovenox) 40 mg SC 1400 TIN PRN Reason: Protocol Last Admin: 06/10/17 14:30 Dose: 40 mg Fluticasone Propionate (Flonase) 1 actuation NS DAILY [facility] Last Admin: 06/10/17 09:29 Dose: 1 spr Hydromorphone HCl (Dilaudid) 1 mg IVP Q3H PRN PRN Reason: Pain, severe (8-10) Ibuprofen (Motrin Tab) 600 mg PO Q4H PRN PRN Reason: Pain, moderate (4-7) Last Admin: 06/11/17 03:53 Dose: 600 mg Insulin Detemir (Levemir) 15 unit SC HS [facility] Last Admin: 06/10/17 21:42 Dose: 15 unit Insulin Human Lispro (Humalog High) 0 units SC ACHS [facility] PRN Reason: Protocol Last Admin: 06/10/17 21:42 Dose: 3 units Magnesium Hydroxide (Milk Of Magnesia) 30 ml PO DAILY PRN PRN Reason: Indigestion Last Admin: 06/08/17 10:08 Dose: 30 ml Montelukast Sodium (Singulair) 10 mg PO DAILY [facility] Last Admin: 06/10/17 09:29 Dose: 10 mg Oxycodone HCl (Oxycodone Immediate Release Tab) 10 mg PO Q6H PRN PRN Reason: Pain, moderate (4-7) Polyethylene Glycol (Miralax) 17 gm PO BID [facility] Last Admin: 06/10/17 17:12 Dose: 17 gm Sodium Chloride ([place] Nasal [place]) 0 ml NS Q4H [facility] Last Admin: 06/11/17 03:51 Dose: Not Given Tramadol HCl (Ultram) 50 mg PO Q6 PRN PRN Reason: Pain, severe (8-10) Last Admin: 06/10/17 17:56 Dose: 50 mg - Labs Labs: 06/11/17 06:30 06/11/17 06:30 PT 10.7 SECONDS (9.4-12.5) 06/07/17 14:30 INR 0.94 (0.93-1.08) 06/07/17 14:30 APTT 25.3 Seconds (25.1-36.5) 06/07/17 14:30
[2017-06-11] MEDS: Bacitracin 500 Units/gm Oint Foilpak UD TOP SCH (09:28)
[2017-06-11] MEDS: POLYETHYLENE GLYCOL 3350 17 GM/Dose PACKET PO SCH (09:28)
[2017-06-11] MEDS: Magnesium Hydroxide Susp 30 ml UD PO PRN (09:28)
[2017-06-11] MEDS: Bisacodyl 5mg EC Tab PO SCH (09:29)
[2017-06-11] MEDS: Fluticasone Nasal 50 mcg/Spray NS SCH (09:29)
[2017-06-11] MEDS: Enoxaparin 40 mg Syringe SC SCH (14:01)
[2017-06-11] MEDS ORDERED: Influenza Vaccine 60 mcg/0.5 mL SYR (4YR UP) IM ONE (16:18)
[2017-06-11 16:24] VITALS: BP 116/54; TEMP 97.8; O2SAT 98
--- NOTE | 2017-06-12 04:56 | DS ---
HISTORY OF PRESENT ILLNESS: Patient is a 62-year-old female who had come to the hospital and was found to have a fracture of the right hip. The patient went to the OR with Dr. Loya and had an ORIF done. She feels well. The patient had a Willams that was taken out 2 days ago, but went into urinary retention. A Willams was placed again. We will attempt to take out the Willams this morning. She was seen by Dr. Loya and cleared for discharge. I did speak to the patient's and the patient. She is interested in going to [facility] for her rehab. I did speak to the human services case manager to help coordinate that. The patient has no complaints of any headaches or dizziness. PHYSICAL EXAMINATION: VITAL SIGNS: Temperature is 98.8, pulse of 98, blood pressure is 137/67, respirations 20, O2 saturation 96%. GENERAL: The patient is lying in bed, flat, comfortable. HEENT: No oral lesion. Anicteric sclerae. Moist mucosa. NECK: No JVD, adenopathy, or thyromegaly. CARDIOVASCULAR: S1 and S2, regular. No murmurs, rubs, or gallops. LUNGS: Clear to auscultation bilaterally. No wheeze, rales, or rhonchi. ABDOMEN: Bowel sounds are positive, soft, nontender and nondistended. EXTREMITIES: No cyanosis, clubbing or edema. ASSESSMENT: 1. Right intertrochanteric hip fracture, status post open reduction and internal fixation, postop day #3. 2. Diabetes type 2. 3. Chronic constipation. 4. Colonic inertia. PLAN: The patient is currently comfortable, on bacitracin. The patient does not wish to take any narcotics. She is on insulin for her diabetes. She is on Lovenox for her DVT prophylaxis. She is receiving MiraLax for her constipation. She is on Singulair. The patient is on tramadol and Tylenol for pain. CONDITION: Stable. ACTIVITIES: Increase as tolerated. Alex Jacobson MD
== END 2017-06-11 18:46 | DRG 482 ==
LOC: ED 15:00 → ERH 16:32 → 5RNO 21:31
PROVIDERS: ADMIT Internal Medicine; ATTEND Internal Medicine
PROC: 0QS606Z Reposition Right Upper Femur with Intramedullary Internal Fixation Device, Open Approach (ICD-10-PCS; principal; 2017-06-08 14:30)
PROC: 0T9B70Z Drainage of Bladder with Drainage Device, Via Natural or Artificial Opening (ICD-10-PCS; 2017-06-11)
DX: S72.141A Displaced intertrochanteric fracture of right femur, initial encounter for closed fracture (principal); E11.42 Type 2 diabetes mellitus with diabetic polyneuropathy; E11.43 Type 2 diabetes mellitus with diabetic autonomic (poly)neuropathy; K31.84 Gastroparesis; I10 Essential (primary) hypertension; K59.09 Other constipation; R33.9 Retention of urine, unspecified; K63.89 Other specified diseases of intestine; Y93.01 Activity, walking, marching and hiking; W01.0XXA Fall on same level from slipping, tripping and stumbling without subsequent striking against object, initial encounter; Y92.480 Sidewalk as the place of occurrence of the external cause; Z79.4 Long term (current) use of insulin; Z88.5 Allergy status to narcotic agent; Z88.2 Allergy status to sulfonamides

== ENCOUNTER 2017-09-04 15:39 | Inpatient (IN) | payer BC ==
[2017-09-04 15:50] VITALS: BMI 34.9
--- NOTE | 2017-09-04 16:45 | ED PDOC ---
Arrival/HPI - History of Present Illness Time/Duration: > month Symptom Onset: Sudden Symptom Course: Unchanged <Tristan Trinidad - Last Filed: 09/04/17 17:51> <Shaheed Montalvo - Last Filed: 09/04/17 18:35> - General Chief Complaint: Female Genitourinary Time Seen by Provider: 09/04/17 16:14 - History of Present Illness Narrative History of Present Illness (Text): 09/04/17 16:38 Pt is a 62 yo F with PMH of DM, gastroparesis, diabetic neuropathy, asthma, recurrent UTI, urinary incontinence and hip fracture presents to emergency department as instructed by her PMD for failed outpatient treatment for recurrent UTI. Patient states that she was at subacute rehab about 2-3 months ago for hip fracture. During her stay, she stated that her diaper was often left unchanged and due to this developed a UTI. Patient was given multiple PO antibiotics over the last 2 months, but UTI did not resolve. Patient stated that according to her PMD her urine cultures resistant to multiple antibiotics and requested that she proceed to the Emergency department to be admitted for IV antibiotics. Patient admits to dysuria and odd smell in her urine, but states that her urine is clear. Patient denies hematuria, pyruia, discharge, or abdominal/pelvic pain. Patient also denies CP, SOB, Nausea, vomiting, abdominal pain, fever, chills, HAAS, or dizziness. PMD: Tristan Maldonado) Past Medical History - Infectious Disease Hx of Infectious Diseases: None - Reproductive Menopause: Yes - Cardiac Hx Cardiac Disorders: Yes Hx Hypertension: Yes - Pulmonary Hx Respiratory Disorders: Yes Hx Asthma: Yes - Neurological Hx Neurological Disorder: No - HEENT Hx HEENT Disorder: Yes (eyeglasses) - Renal Hx Renal Disorder: No - Endocrine/Metabolic Hx Endocrine Disorders: Yes Hx Diabetes Mellitus Type 1: Yes - Hematological/Oncological Hx Blood Disorders: No - Integumentary Hx Dermatological Disorder: Yes Other/Comment: abrasions to right elbow and r knee - Musculoskeletal/Rheumatological Hx Musculoskeletal Disorders: Yes Hx Falls: Yes (january 2017 and today) - Gastrointestinal Hx Gastrointestinal Disorders: Yes Other/Comment: no bowel motility, needs to take mom or miralax or have colonic cleansing once a week - Genitourinary/Gynecological Hx Genitourinary Disorders: No - Psychiatric Hx Psychophysiologic Disorder: No Hx Substance Use: No - Anesthesia Hx Anesthesia Reactions: No Hx Malignant Hyperthermia: No <Tristan Trinidad - Last Filed: 09/04/17 17:51> Family/Social History Family/Social History: No Known Family HX Smoking Status: Never Smoked Hx Alcohol Use: No Hx Substance Use: No <Tristan Trinidad - Last Filed: 09/04/17 17:51> Allergies/Home Meds <Tristan Trinidad - Last Filed: 09/04/17 17:51> <Shaheed Montalvo - Last Filed: 09/04/17 18:35> Allergies/Adverse Reactions: Allergies codeine Allergy (Verified 09/04/17 15:50) ANAPHYLAXIS Sulfa (Sulfonamide Antibiotics) Allergy (Verified 09/04/17 15:50) ANAPHYLAXIS Home Medications: Home Meds Medication Instructions Recorded Confirmed Insulin Glargine, Recombina 70 unit SC [facility] 06/07/17 09/04/17 [Lantus] Insulin Lispro [humALOG] 5 units SQ Q1 [facility] via insulin pump 06/07/17 09/04/17 Montelukast [Singulair] 10 mg PO DAILY 06/07/17 09/04/17 Telmisartan [Micardis] 40 mg PO DAILY 06/07/17 09/04/17 Gabapentin [Neurontin] 200 mg PO DAILY 09/04/17 09/04/17 Review of Systems - Physician Review All systems were reviewed & negative as marked: Yes (12 point ROS reviewed and is negative other than what is stated in HPI.) <Tristan Trinidad - Last Filed: 09/04/17 17:51> Physical Exam Vital Signs Reviewed: Yes Temperature: Afebrile Blood Pressure: Normal Pulse: Regular Respiratory Rate: Normal Appearance: Positive for: Non-Toxic Pain Distress: None Mental Status: Positive for: Alert and Oriented X 3 Finger Stick Blood Glucose: 113 - Systems Exam Head: Present: Atraumatic, Normocephalic Pupils: Present: PERRL Extroacular Muscles: Present: EOMI Conjunctiva: Present: Normal Mouth: Present: Moist Mucous Membranes Neck: Present: Normal Range of Motion Respiratory/Chest: Present: Clear to Auscultation. No: Wheezes, Rales, Rhonchi Cardiovascular: Present: Regular Rate and Rhythm, Normal S1, S2. No: Murmurs, Rub, Gallop Abdomen: No: Tenderness, Distention, Rebound, Guarding Upper Extremity: Present: Normal Inspection. No: Cyanosis, Edema Lower Extremity: Present: Normal Inspection. No: Edema Neurological: Present: GCS=15, CN II-XII Intact, Speech Normal Skin: Present: Warm, Dry, Normal Color. No: Rashes Psychiatric: Present: Alert, Oriented x 3, Normal Insight, Normal Concentration <Tristan Trinidad - Last Filed: 09/04/17 17:51> Vital Signs Temp Pulse Resp BP Pulse Ox 09/04/17 15:53 98.3 F 87 19 117/67 95 Medical Decision Making <Tristan Trinidad - Last Filed: 09/04/17 17:51> <Shaheed Montalvo - Last Filed: 09/04/17 18:35> ED Course and Treatment: 09/04/17 16:55 62 yo F presents to Emergency department as instructed by her PMD for failed outpatient treatment due multi-drug resistant organism UTI. Plan: - CBC, CMP - Coags - Blood, urine cultures - EKG - CXR - UA - VBG shock - Reassess and disposition 09/04/17 16:58 Dr. Chavarria was contacted to discuss patient. Outpatient UA and culture from 08/31 were faxed, which showed positive UTI. Urine culture was positive for Pseudomonas aeruginosa that is resistant to aztreonam, ciprofloxacin, cefepime, gentamicin, and levofloxacin. Sensitive to amikacin (BLAISE <=16), ceftazidime (4) , imipenem (2), and zosyn (32). Dr. Chavarria agrees with plan for IV antibiotics and admission under her service. Patient will be admitted to med/surg. 09/04/17 17:24 CXR reviewed by radiologist showed no acute pulmonary disease. (Tristan Trinidad) 09/04/17 18:31 Patient seen and evaluated with medical leader. I examined patient and reviewed history with patient. Patient has history of urinary tract infections, recurrent. She has recently been treated with oral antibiotics, although UTI persists and recent sensitivites obtained by Dr. Chavarria reveal resistance to multiple oral antibiotics. Patient will be initiated on iv antibiotics after review of sensitivites. Patient currently afebrile. Not currently septic. No acute abdominal pain or back pain. Case d/w Dr. Chavarria, will admit patient to her service. (Shaheed Montalvo) - Lab Interpretations Lab Results: 09/04/17 17:19 09/04/17 17:19 Lab Results 09/04/17 17:54: Urine Color Light yellow, Urine Appearance Clear, Urine pH 6.0, Ur Specific [place] <= 1.005, Urine Protein Negative, Urine Glucose (UA) Negative, Urine Ketones Negative, Urine Blood Negative, Urine Nitrate Negative, Urine Bilirubin Negative, Urine Urobilinogen 0.2, Ur Leukocyte Esterase Moderate H, Urine RBC Pending, Urine WBC Pending 09/04/17 17:19: PT 11.1, INR 0.97, APTT 27.3 09/04/17 17:19: pO2 44, VBG pH 7.36, VBG pCO2 58.0, VBG HCO3 32.8 H, VBG Total CO2 34.6 H, VBG O2 Sat (Calc) 85.4 H, VBG Base Excess 5.6 H, VBG Potassium 4.2, Sodium 137.0, Chloride 102.0, Glucose 161 H, Lactate 1.7, FiO2 21.0, Venous Blood Potassium 4.2 09/04/17 17:19: Sodium 141, Chloride 98, Potassium 4.3, Carbon Dioxide 31, Anion Gap 17, BUN 18, Creatinine 0.6 L, Est GFR ( Amer) > 60, Est GFR ( Non-Af Amer) > 60, Random Glucose 158 H, Calcium 9.7, Magnesium 1.9, Total Bilirubin 0.2, AST 32, ALT 30, Alkaline Phosphatase 150 H D, Total Protein 7.9, Albumin 4.3, Globulin 3.6, Albumin/Globulin Ratio 1.2 09/04/17 17:19: WBC 11.6 H D, RBC 4.90, Hgb 13.8 D, Hct 41.4, MCV 84.5, MCH 28.2, MCHC 33.3, RDW 13.7, Plt Count 312, MPV 9.3, Gran % 64.6, Lymph % (Auto) 23.5, [place] % (Auto) 6.7 H, Eos % (Auto) 4.4, Baso % (Auto) 0.8, Gran # 7.53 H, Lymph # (Auto) 2.7, [place] # (Auto) 0.8 H, Eos # (Auto) 0.5, Baso # (Auto) 0.09 09/04/17 16:01: POC Glucose (mg/dL) 113 H - RAD Interpretation Radiology Orders: 09/04/17 16:45 CXR [CHEST PORTABLE] [RAD] Stat - Medication Orders Current Medication Orders: Fluticasone Propionate (Flonase) 1 actuation NS DAILY T[facility] Gabapentin (Neurontin) 200 mg PO TID TIN PRN Reason: Protocol Meropenem 500 mg/ Sodium (Chloride) 50 mls @ 100 mls/hr IVPB Q8 TIN PRN Reason: Protocol Stop: 09/04/17 22:29 Last Admin: 09/04/17 17:56 Dose: 100 mls/hr eMAR Start Stop Document 09/04/17 17:56 LA (Rec: 09/04/17 17:57 GAEL [id number]) Intravenous Solution Start Date 09/04/17 Start Time 17:56 End Date 09/04/17 End time 18:26 Total Infusion Time 30 Meropenem 500 mg/ Sodium (Chloride) 50 mls @ 100 mls/hr IVPB Q8 TIN PRN Reason: Protocol Stop: 09/05/17 06:29 Insulin Human Lispro (Humalog High) 0 units SC ACHS [facility] PRN Reason: Protocol Montelukast Sodium (Singulair) 10 mg PO DAILY [facility] Disposition/Present on Arrival - Present on Arrival History of DVT/PE: No History of Uncontrolled Diabetes: No Urinary Catheter: Yes (inserted in ed) History of Decub. Ulcer: No History Surgical Site Infection Following: None <Tristan Trinidad - Last Filed: 09/04/17 17:51> - Present on Arrival Any Indicators Present on Arrival: No - Disposition Have Diagnosis and Disposition been Completed?: Yes Disposition Time: 17:40 Patient Plan: Admission <Shaheed Montalvo - Last Filed: 09/04/17 18:35> - Disposition Diagnosis: Urinary tract infection Disposition: HOSPITALIZED Patient Problems: Current Active Problems Problem Status Onset Urinary tract infection Acute Condition: FAIR Forms: [employer] ([place]ian)
[2017-09-04 17:22] LABS: VENOUS BLOOD GAS BASE EXCESS 5.6 mmol/L (0.0-2.0); VENOUS BLOOD GAS PO2 44 mm/Hg (30-55); VENOUS BLOOD PH 7.36 (7.32-7.43)
--- NOTE | 2017-09-04 17:23 | RAD ---
HISTORY: medical screening COMPARISON: 06/07/2017. FINDINGS: LUNGS: The lungs are well inflated and clear. PLEURA: No significant pleural effusion identified, no pneumothorax apparent. CARDIOVASCULAR: Normal. OSSEOUS STRUCTURES: No significant abnormalities. VISUALIZED UPPER ABDOMEN: Normal. OTHER FINDINGS: None. IMPRESSION: No active pulmonary disease.
[2017-09-04 17:26] LABS: BASO # 0.09 K/mm3 (0.0-2.0); BASO % 0.8 % (0.0-3.0); EOS # 0.5 (0.0-0.7); EOS % 4.4 % (1.5-5.0); GRAN # 7.53 (1.4-6.5); GRAN % 64.6 % (50.0-68.0); HEMOGLOBIN 13.8 g/dL (12.0-16.0); LYMPH # 2.7 (1.2-3.4); LYMPH % 23.5 % (22.0-35.0); MEAN CELL VOLUME 84.5 fl (80.0-105.0); MEAN CORPUSCULAR HEMOGLOBIN 28.2 pg (25.0-35.0); MEAN CORPUSCULAR HGB CONC 33.3 g/dl (31.0-37.0); MEAN PLATELET VOLUME 9.3 fl (7.0-11.0); MONO # 0.8 (0.1-0.6); MONO % 6.7 % (1.0-6.0); RBC 4.9 10^6/uL (3.5-6.1); RED CELL DISTRIBUTION WIDTH 13.7 % (11.5-14.5); WHITE BLOOD COUNT 11.6 10^3/ul (4.5-11.0)
[2017-09-04 17:33] LABS: ALB/GLOB RATIO 1.2 (1.1-1.8); ALBUMIN 4.3 g/dL (3.0-4.8); ALT/SGPT 30 U/L (7-56); AST/SGOT 32 U/L (14-36); BLOOD UREA NITROGEN 18 mg/dL (7-21); CALCIUM 9.7 mg/dL (8.4-10.5); GFR AFRICAN-AMERICAN > 60; GFR NON-AFRICAN AMERICAN > 60
[2017-09-04 17:34] LABS: INR 0.97 (0.93-1.08); PARTIAL THROMBOPLASTIN TIME 27.3 Seconds (25.1-36.5); PROTHROMBIN TIME 11.1 SECONDS (9.4-12.5)
[2017-09-04] MEDS ORDERED: Meropenem 500 MG in Sodium Chloride 0.9% 50 ML IVPB SCH ×2 (17:45→22:00)
[2017-09-04 18:23] LABS: URINE BILIRUBIN NEGATIVE (NEGATIVE); URINE BLOOD NEGATIVE (NEGATIVE); URINE GLUCOSE (UA) NEGATIVE (NEGATIVE); URINE LEUKOCYTE ESTERASE MODERATE Leu/uL (NEGATIVE); URINE PROTEIN NEGATIVE mg/dL (<30 mg/dL); URINE UROBILINOGEN 0.2 E.U./dL (<1 E.U./dL)
[2017-09-04 18:26] LABS: URINE APPEARANCE CLEAR (CLEAR); URINE COLOR LIGHT YELLOW (YELLOW)
[2017-09-04 18:40] LABS: URINE BACTERIA LARGE (NEG); URINE RBC 0 - 2 /hpf (0-2); URINE WBC 20 - 25 /hpf (0-6)
[2017-09-04] MEDS: Fluticasone Nasal 50 mcg/Spray NS SCH (19:57)
[2017-09-04] MEDS ORDERED: Insulin Detemir 100 units/ml Vial (Levemir) SC SCH (22:00)
[2017-09-04] MEDS: Insulin Lispro (HUMAlog) HIGH Coverage SC SCH (23:00)
--- NOTE | 2017-09-04 23:03 | HP ---
HISTORY OF PRESENT ILLNESS: The patient is 62 years old, known to me from office practice. The patient fell on 06/07/2017 and had right intertrochanteric fracture, underwent open reduction and internal fixation. The patient states she was in rehab for long time. Over there, since she was not very ambulatory, she was urinating in diaper since then. She got multiple UTIs. I treated her twice with p.o. antibiotic. Apparently, she is still having symptom with increased frequency, incontinence and she states her urine literally her inner thighs and most of the time she leaks her urine, has no control, so I had recent culture done that shows Pseudomonas aeruginosa that is resistant to all p.o. antibiotics, so referred to ER for admission and IV antibiotic. The patient complained of having chills at times. Complained of increased frequency of urination, difficult to hold and feel hot and burn when the urine runs along her thighs. PAST MEDICAL HISTORY: Significant for, 1. Poorly-controlled insulin-dependent diabetes. 2. Pelvic floor inertia leading to chronic constipation. 3. History of hypertension. 4. Chronic sinus infection. ALLERGY: SHE IS ALLERGIC TO CODEINE AND SULFONAMIDES. MEDICATIONS AT HOME: She is on insulin. She is on Lantus. She takes Singulair 10 mg daily, gabapentin 200 three times a day and Micardis 40 mg daily, Singulair 10 mg daily and Lantus 70 units at bedtime. SOCIAL HISTORY: She is , lives with her . She is a retired ip attorney. REVIEW OF SYSTEMS: Significant for generalized weakness, difficulty walking and increased frequency of urination, having chills. PHYSICAL EXAMINATION: GENERAL: She is awake, alert, oriented, communicative. VITAL SIGNS: She is afebrile, pulse 87, respirations 19, blood pressure 117/67. LUNGS: Bilateral fair airflow. No rhonchi or crackle. HEART: S1 and S2 audible. ABDOMEN: Soft. Nontender. No rebound. No guarding. NEUROLOGICAL: She is awake, alert, oriented, communicative, ambulates with a cane. LABORATORY EXAM: WBC is 11.6, hemoglobin 13.8, hematocrit 41.4, platelet 312. PT 11.1, INR 0.97. Chemistry: Sodium 141, potassium 4.3, chloride 98, CO2 of 31, BUN 18, creatinine 0.6, blood sugar of 158, alk phos 150. Urine shows moderate leukocyte and wbc is 20-25. ASSESSMENT: 1. Recurrent urinary tract infection. 2. Multi drug resistant urinary tract infection. 3. Recent right hip fracture. 4. Insulin-dependent diabetes. 5. Chronic constipation secondary to pelvic inertia. PLAN: The patient will be admitted on Med-Surg. We will start her on IV antibiotic. Urine culture, blood culture were sent. ID consult with Dr. Swan has been requested. We will monitor her blood sugar and we will follow up the patient in the a.m. Devi Chavarria MD
[2017-09-05] MEDS: Meropenem 500 MG in Sodium Chloride 0.9% 50 ML IVPB SCH ×3 (02:15→17:01)
[2017-09-05] MEDS: Insulin Lispro (HUMAlog) HIGH Coverage SC SCH ×4 (08:57→22:10)
[2017-09-05] MEDS: Fluticasone Nasal 50 mcg/Spray NS SCH (10:24)
--- NOTE | 2017-09-05 17:03 | CARD ---
APPROVED REPORT EKG Measurement Heart [id number] <Conclusion> Normal sinus rhythm Left axis deviation Inferior infarct, age undetermined Possible Anterior infarct, age undetermined Abnormal ECG
--- NOTE | 2017-09-05 18:26 | PN ---
DATE: 09/05/2017 SUBJECTIVE: The patient is 62 years old, seen and examined. She states she has no control on her urine. She is very upset about it. Still has increased frequency of urination. She states she is soaking her diaper every minute and she is very concerned about it. She already suffers from pelvic inertia and uses to get rid of her fecal matter since she has difficulty defecating. PHYSICAL EXAMINATION: GENERAL: Today, she is awake, alert, oriented, communicative. VITAL SIGNS: She is afebrile, pulse 89, respirations 20, blood pressure 141/78. LUNGS: Bilateral fair airflow. No rhonchi or crackle. HEART: S1 and S2 audible. ABDOMEN: Soft. Nontender. No rebound. No guarding. NEUROLOGICAL: The patient is awake and alert, able to communicate. LABORATORY EXAM: Blood sugar is 262. ASSESSMENT: 1. Recurrent urinary tract infection. 2. Failed outpatient treatment. 3. Multi drug resistant urinary tract infection. 4. Urinary incontinence. 5. Hypertension. 6. Insulin-dependent diabetes. 7. Pelvic inertia with chronic constipation. PLAN: Currently, the patient is on meropenem. Continue gabapentin. The patient is using her own insulin pump and she will monitor her own insulin and give herself according to her intake. I will request for Dr. Warner's evaluation and is already seeing the patient. Devi Chavarria MD
--- NOTE | 2017-09-05 19:12 | CP.PCM.CON ---
History of Present Illness - History of Present Illness History of Present Illness: 62 year old female with PMH of DM with neuropathy, gastroparesis, recurrent UTI , obesity with BMI 35, history of hip fracture came in to [facility] [place] because of recurrent UTI. Since being in a subacute rehab for hip fracture, she has been having intermittent dysuria, urgency and frequency. As per Dr. Chavarria she has been treating UTI's as an outpatient, but this time she isolated resistant bacteria from the urine. She denies flank pain, no nausea or vomiting, no fever or chills, no headache or dizziness, no abdominal pain, no diarrhea, no cough or rhinorrhea, no sore throat. Infectious Diseases consult is requested to further evaluate and manage. Review of Systems - Review of Systems All systems: reviewed and no additional remarkable complaints except (as per HPI ) Past Patient History - Infectious Disease Hx of Infectious Diseases: None - Past Social History Smoking Status: Never Smoked - CARDIAC Hx Cardiac Disorders: Yes Hx Hypertension: Yes - PULMONARY Hx Respiratory Disorders: Yes Hx Asthma: Yes - NEUROLOGICAL Hx Neurological Disorder: No - HEENT Hx HEENT Problems: Yes (eyeglasses) - RENAL Hx Chronic Kidney Disease: No - ENDOCRINE/METABOLIC Hx Endocrine Disorders: Yes Hx Diabetes Mellitus Type 1: Yes - HEMATOLOGICAL/ONCOLOGICAL Hx Blood Disorders: No - INTEGUMENTARY Hx Dermatological Problems: Yes Other/Comment: abrasions to right elbow and r knee - MUSCULOSKELETAL/RHEUMATOLOGICAL Hx Musculoskeletal Disorders: Yes Hx Falls: Yes (january 2017 and today) - GASTROINTESTINAL Hx Gastrointestinal Disorders: Yes Other/Comment: no bowel motility, needs to take mom or miralax or have colonic cleansing once a week - GENITOURINARY/GYNECOLOGICAL Hx Genitourinary Disorders: No - PSYCHIATRIC Hx Psychophysiologic Disorder: No Hx Substance Use: No - SURGICAL HISTORY Hx Surgeries: No - ANESTHESIA Hx Anesthesia Reactions: No Hx Malignant Hyperthermia: No Meds Allergies/Adverse Reactions: Allergies Allergy/AdvReac Type Severity Reaction Status Date / Time codeine Allergy ANAPHYLAXIS Verified 09/04/17 15:50 Sulfa (Sulfonamide Allergy ANAPHYLAXIS Verified 09/04/17 15:50 Antibiotics) - Medications Medications: Current Medications Fluticasone Propionate (Flonase) 1 actuation NS DAILY [facility] Last Admin: 09/04/17 19:57 Dose: 50 mcg Gabapentin (Neurontin) 200 mg PO TID TIN PRN Reason: Protocol Last Admin: 09/04/17 19:41 Dose: 200 mg Meropenem 500 mg/ Sodium (Chloride) 50 mls @ 100 mls/hr IVPB Q8 [facility] PRN Reason: Protocol Stop: 09/11/17 22:01 Insulin Detemir (Levemir) 70 unit SC ACBHS [facility] Insulin Human Lispro (Humalog High) 0 units SC ACHS [facility] PRN Reason: Protocol Montelukast Sodium (Singulair) 10 mg PO DAILY [facility] Last Admin: 09/04/17 19:42 Dose: 10 mg Physical Exam - Constitutional Appears: Chronically Ill - Head Exam Head Exam: NORMAL INSPECTION - ENT Exam ENT Exam: Mucous Membranes Moist - Neck Exam Neck exam: Negative for: Meningismus - Respiratory Exam Respiratory Exam: Decreased Breath Sounds - Cardiovascular Exam Cardiovascular Exam: +S1, +S2 - GI/Abdominal Exam GI & Abdominal Exam: Soft. absent: Tenderness Results - Vital Signs Recent Vital Signs: Last Vital Signs Temp 98.3 F 09/04/17 15:53 Pulse 87 09/04/17 15:53 Resp 19 09/04/17 15:53 BP 117/67 09/04/17 15:53 Pulse Ox 95 09/04/17 15:53 - Labs Result Diagrams: 09/04/17 17:19 09/04/17 17:19 Assessment & Plan - Assessment and Plan (Free Text) Plan: Assessment consider acute UTI in this patient with recurrent UTI's neuropathy gastroparesis recurrent UTI obesity with BMI 35 history of hip fracture Plan Started Merrem pending blood and urine cx recommend Urology evaluation discussed with Dr. Chavarria
[2017-09-06] MEDS: Meropenem 500 MG in Sodium Chloride 0.9% 50 ML IVPB SCH ×3 (05:08→21:18)
[2017-09-06] MEDS: Insulin Lispro (HUMAlog) HIGH Coverage SC SCH ×4 (07:22→22:18)
--- NOTE | 2017-09-06 07:57 | PCM.URO ---
Urology Progress Note - Objective Lab Studies: Reviewed (gu dx: uti gu plans : imaging and antibiotics as per dr juan thanks for gu consult full note to be dictated) Lab Results Last 24 Hours: Laboratory Results - last 24 hr 09/05/17 09/05/17 09/05/17 11:04 16:44 21:41 POC Glucose (mg/dL) 262 H 296 H 317 H 09/06/17 06:46 POC Glucose (mg/dL) 280 H Intake & Output: Intake & Output 09/05/17 09/06/17 09/06/17 18:59 06:59 18:59 Intake Total 960 Balance 960 Intake: Oral 960 Other: # Voids Urine, Voided 3 2 # Bowel Movements 0 0 Vital Signs: Vital Signs - 24 hr 09/05/17 09/05/17 14:00 22:00 Temperature 98.7 F 98.0 F Pulse Rate 85 81 Respiratory 20 19 Rate Blood Pressure 135/77 119/75 O2 Sat by Pulse 99 97 Oximetry
--- NOTE | 2017-09-06 09:43 | CT ---
PROCEDURE: CT Abdomen and Pelvis without intravenous contrast HISTORY: recurrent uti COMPARISON: None. TECHNIQUE: Without contrast. Contrast dose: Radiation dose: Total exam DLP = 1109 mGy-cm. This CT exam was performed using one or more of the following dose reduction techniques: Automated exposure control, adjustment of the mA and/or kV according to patient size, and/or use of iterative reconstruction technique. FINDINGS: LOWER THORAX: Unremarkable. LIVER: Unremarkable. No gross lesion or ductal dilatation. GALLBLADDER AND BILE DUCTS: Removed PANCREAS: Unremarkable. No gross lesion or ductal dilatation. SPLEEN: Unremarkable. ADRENALS: Unremarkable. No mass. KIDNEYS AND URETERS: Unremarkable. No hydronephrosis. No solid mass. VASCULATURE: Unremarkable. No aortic aneurysm. BOWEL: Unremarkable. No obstruction. No gross mural thickening. APPENDIX: Unremarkable. Normal appendix. PERITONEUM: Unremarkable. No free fluid. No free air. LYMPH NODES: Unremarkable. No enlarged lymph nodes. BLADDER: Unremarkable. REPRODUCTIVE: Unremarkable. BONES: No acute fracture. OTHER FINDINGS: None. IMPRESSION: Unremarkable non contrast enhanced CT of the abdomen and pelvis.
[2017-09-06] MEDS: Fluticasone Nasal 50 mcg/Spray NS SCH (10:07)
--- NOTE | 2017-09-06 11:30 | US ---
PROCEDURE: Ultrasound of the Kidneys HISTORY: recurrent uti COMPARISON: None available. TECHNIQUE: Sonogram of the kidneys. FINDINGS: RIGHT KIDNEY: Measures: 13.7 cm. Normal in size, contour and echogenicity. No stone, solid mass lesion or hydronephrosis visualized. LEFT KIDNEY: Measures: 13.3 cm. Normal in size, contour and echogenicity. No stone, solid mass lesion or hydronephrosis visualized. OTHER FINDINGS: None. IMPRESSION: Unremarkable renal sonogram.
--- NOTE | 2017-09-06 12:09 | US ---
PROCEDURE: Ultrasound urinary bladder HISTORY: pre and post void volume COMPARISON: Not available TECHNIQUE: Transabdominal FINDINGS: The distended urinary bladder measures 623.1 mL. The wall is smooth and thin. There is no intraluminal mass. Bilateral ureteral jets are demonstrated. The postvoid residual volume in the bladder is 240.8 cc. IMPRESSION: 240.8 cc postvoid residual.
[2017-09-06 12:10] LABS: URINE BILIRUBIN NEGATIVE (NEGATIVE); URINE BLOOD NEGATIVE (NEGATIVE); URINE GLUCOSE (UA) NEGATIVE (NEGATIVE); URINE LEUKOCYTE ESTERASE MODERATE Leu/uL (NEGATIVE); URINE PROTEIN NEGATIVE mg/dL (<30 mg/dL); URINE UROBILINOGEN 0.2 E.U./dL (<1 E.U./dL)
[2017-09-06 12:11] LABS: URINE APPEARANCE CLEAR (CLEAR); URINE COLOR YELLOW (YELLOW)
[2017-09-06 12:40] LABS: URINE RBC 0 - 2 /hpf (0-2); URINE WBC 20 - 25 /hpf (0-6)
[2017-09-06 12:41] LABS: URINE BACTERIA MANY (NEG)
--- NOTE | 2017-09-06 15:05 | PN ---
DATE: 09/06/2017 SUBJECTIVE: The patient is a 62 years old, seen and examined, complaining of constipation, still has increased frequency of urination. No nausea or vomiting. Eating fair. Blood sugar seems to be running high. PHYSICAL EXAMINATION: GENERAL: She is awake, alert, oriented, communicative. VITAL SIGNS: She is afebrile. Pulse is 78, respirations 20, blood pressure 143/80. LUNGS: Bilateral good air flow. No rhonchi or crackle. HEART: S1 and S2, audible. No murmur. ABDOMEN: Soft, nontender. No rebound. No guarding. NEUROLOGIC: The patient is awake, alert, oriented, communicative. LABORATORY DATA: Blood sugar is 212. Blood cultures are negative. ASSESSMENT: 1. Multi drug resistant urinary tract infection. 2. Urinary incontinence. 3. Recent fall and had left hip open reduction and internal fixation. 4. Chronic constipation secondary to pelvic inertia. 5. Recurrent urinary tract infection. PLAN: We will continue the patient on meropenem, start her on MiraLax. She is on gabapentin. We will continue that. I will order for CBC and hemoglobin A1c for the morning. Devi Chavarria MD
--- NOTE | 2017-09-06 16:58 | CP.PCM.PN ---
Subjective - Date & Time of Evaluation Date of Evaluation: 09/06/17 Time of Evaluation: 10:50 - Subjective Subjective: No fevers, dysuria is slightly improved, no nausea, no abdominal pain. No flank pain. Objective - Vital Signs/Intake and Output Vital Signs (last 24 hours): Temp Pulse Resp BP Pulse Ox 97.9 F 78 20 143/80 100 09/06/17 06:00 09/06/17 06:00 09/06/17 06:00 09/06/17 06:00 09/06/17 06:00 - Medications Medications: Current Medications Fluticasone Propionate (Flonase) 1 actuation NS DAILY [facility] Last Admin: 09/05/17 10:24 Dose: 1 mcg Gabapentin (Neurontin) 200 mg PO TID TIN PRN Reason: Protocol Last Admin: 09/05/17 17:00 Dose: 200 mg Meropenem 500 mg/ Sodium (Chloride) 50 mls @ 100 mls/hr IVPB Q8 TIN PRN Reason: Protocol Stop: 09/11/17 22:01 Last Admin: 09/06/17 05:08 Dose: 100 mls/hr Insulin Human Lispro (Humalog High) 0 units SC ACHS TIN PRN Reason: Protocol Last Admin: 09/06/17 07:22 Dose: Not Given Montelukast Sodium (Singulair) 10 mg PO DAILY [facility] Last Admin: 09/05/17 10:24 Dose: 10 mg Tizanidine HCl (Zanaflex) 4 mg PO TID PRN PRN Reason: back spasm - Labs Labs: PT 11.1 SECONDS (9.4-12.5) 09/04/17 17:19 INR 0.97 (0.93-1.08) 09/04/17 17:19 APTT 27.3 Seconds (25.1-36.5) 09/04/17 17:19 - Constitutional Appears: Chronically Ill - Head Exam Head Exam: NORMAL INSPECTION - Neck Exam Neck Exam: absent: Meningismus - Respiratory Exam Respiratory Exam: Decreased Breath Sounds - Cardiovascular Exam Cardiovascular Exam: +S1, +S2 - GI/Abdominal Exam GI & Abdominal Exam: Soft. absent: Tenderness Assessment and Plan - Assessment and Plan (Free Text) Plan: Assessment consider acute UTI in this patient with recurrent UTI's neuropathy gastroparesis recurrent UTI obesity with BMI 35 history of hip fracture Plan continue Merrem day 2 pending blood and urine cx follow up Urology evaluation discussed with Dr. Chavarria previously
[2017-09-07] MEDS: Meropenem 500 MG in Sodium Chloride 0.9% 50 ML IVPB SCH ×3 (05:52→22:02)
[2017-09-07] MEDS: Insulin Lispro (HUMAlog) HIGH Coverage SC SCH ×4 (06:29→21:37)
[2017-09-07 07:43] LABS: ALB/GLOB RATIO 1.2 (1.1-1.8); ALBUMIN 4.1 g/dL (3.0-4.8); ALT/SGPT 28 U/L (7-56); AST/SGOT 17 U/L (14-36); BLOOD UREA NITROGEN 20 mg/dL (7-21); CALCIUM 9.4 mg/dL (8.4-10.5); GFR AFRICAN-AMERICAN > 60; GFR NON-AFRICAN AMERICAN > 60
--- NOTE | 2017-09-07 08:34 | PCM.URO ---
Urology Progress Note - Objective Lab Studies: Reviewed (gu dx: uti, negative ct gu plans : antibiotics) Lab Results Last 24 Hours: Laboratory Results - last 24 hr 09/06/17 09/06/17 09/06/17 11:16 11:55 15:59 Sodium Potassium Chloride Carbon Dioxide Anion Gap BUN Creatinine Est GFR ( Amer) Est GFR (Non-Af Amer) POC Glucose (mg/dL) 218 H 305 H Random Glucose Calcium Total Bilirubin AST ALT Alkaline Phosphatase Total Protein Albumin Globulin Albumin/Globulin Ratio Urine Color Yellow Urine Appearance Clear Urine pH 6.0 Ur Specific [place] <= 1.005 Urine Protein Negative Urine Glucose (UA) Negative Urine Ketones Negative Urine Blood Negative Urine Nitrate Negative Urine Bilirubin Negative Urine Urobilinogen 0.2 Ur Leukocyte Esterase Moderate H Urine RBC 0 - 2 Urine WBC 20 - 25 Ur Epithelial Cells 6 - 8 Urine Bacteria Many 09/06/17 09/07/17 09/07/17 22:11 06:04 07:00 Sodium 139 Potassium 4.5 Chloride 97 L Carbon Dioxide 31 Anion Gap 16 BUN 20 Creatinine 0.6 L Est GFR ( Amer) > 60 Est GFR (Non-Af Amer) > 60 POC Glucose (mg/dL) 330 H 277 H Random Glucose 300 H Calcium 9.4 Total Bilirubin 0.4 AST 17 ALT 28 Alkaline Phosphatase 144 H Total Protein 7.6 Albumin 4.1 Globulin 3.4 Albumin/Globulin Ratio 1.2 Urine Color Urine Appearance Urine pH Ur Specific [place] Urine Protein Urine Glucose (UA) Urine Ketones Urine Blood Urine Nitrate Urine Bilirubin Urine Urobilinogen Ur Leukocyte Esterase Urine RBC Urine WBC Ur Epithelial Cells Urine Bacteria Intake & Output: Intake & Output 09/06/17 09/07/17 09/07/17 18:59 06:59 18:59 Intake Total 1560 480 Balance 1560 480 Intake: Oral 1560 480 Other: # Voids Urine, Voided 5 # Bowel Movements 3 Vital Signs: Vital Signs - 24 hr 09/06/17 09/06/17 09/06/17 14:00 17:31 22:26 Temperature 97.4 F L 97 F L 98.5 F Pulse Rate 91 H 91 H 89 Respiratory 20 20 20 Rate Blood Pressure 117/67 117/67 122/81 O2 Sat by Pulse 99 99 95 Oximetry 09/07/17 06:00 Temperature 98 F Pulse Rate 73 Respiratory 20 Rate Blood Pressure 156/82 H O2 Sat by Pulse 95 Oximetry
[2017-09-07] MEDS: Bisacodyl 5mg EC Tab PO SCH (09:56)
[2017-09-07] MEDS: POLYETHYLENE GLYCOL 3350 17 GM/Dose PACKET PO SCH (09:56)
[2017-09-07] MEDS: Fluticasone Nasal 50 mcg/Spray NS SCH (09:56)
[2017-09-07 12:27] LABS: PH,URINE 6.5 (4.7-8.0); URINE BILIRUBIN NEGATIVE (NEGATIVE); URINE BLOOD NEGATIVE (NEGATIVE); URINE GLUCOSE (UA) 250 mg/dL (NEGATIVE); URINE LEUKOCYTE ESTERASE SMALL Leu/uL (NEGATIVE); URINE PROTEIN NEGATIVE mg/dL (<30 mg/dL); URINE UROBILINOGEN 0.2 E.U./dL (<1 E.U./dL)
[2017-09-07 12:29] LABS: URINE APPEARANCE CLEAR (CLEAR); URINE COLOR YELLOW (YELLOW)
[2017-09-07 12:35] LABS: URINE BACTERIA MOD (NEG); URINE RBC 0 - 2 /hpf (0-2)
--- NOTE | 2017-09-07 13:06 | CP.PCM.PN ---
Subjective - Date & Time of Evaluation Date of Evaluation: 09/07/17 Time of Evaluation: 11:30 - Subjective Subjective: Patient is feeling a little better, no fevers, not in distress. Objective - Vital Signs/Intake and Output Vital Signs (last 24 hours): Temp Pulse Resp BP Pulse Ox 98 F 73 20 156/82 H 95 09/07/17 06:00 09/07/17 06:00 09/07/17 06:00 09/07/17 06:00 09/07/17 06:00 Intake and Output: 09/07/17 09/07/17 06:59 18:59 Intake Total 480 Balance 480 - Medications Medications: Current Medications Bisacodyl (Dulcolax) 5 mg PO DAILY [facility] Fluticasone Propionate (Flonase) 1 actuation NS DAILY [facility] Last Admin: 09/06/17 10:07 Dose: 1 mcg Gabapentin (Neurontin) 200 mg PO TID TIN PRN Reason: Protocol Last Admin: 09/06/17 16:59 Dose: 200 mg Meropenem 500 mg/ Sodium (Chloride) 50 mls @ 100 mls/hr IVPB Q8 [facility]IN PRN Reason: Protocol Stop: 09/11/17 22:01 Last Admin: 09/07/17 05:52 Dose: 100 mls/hr Insulin Human Lispro (Humalog High) 0 units SC ACHS TIN PRN Reason: Protocol Last Admin: 09/07/17 06:29 Dose: 7 units Montelukast Sodium (Singulair) 10 mg PO DAILY [facility] Last Admin: 09/06/17 10:07 Dose: 10 mg Polyethylene Glycol (Miralax) 17 gm PO DAILY [facility] Tizanidine HCl (Zanaflex) 4 mg PO TID PRN PRN Reason: back spasm - Labs Labs: 09/07/17 07:00 PT 11.1 SECONDS (9.4-12.5) 09/04/17 17:19 INR 0.97 (0.93-1.08) 09/04/17 17:19 APTT 27.3 Seconds (25.1-36.5) 09/04/17 17:19 - Constitutional Appears: Chronically Ill - Head Exam Head Exam: NORMAL INSPECTION - ENT Exam ENT Exam: Mucous Membranes Moist - Neck Exam Neck Exam: absent: Lymphadenopathy, Meningismus - Respiratory Exam Respiratory Exam: Decreased Breath Sounds - Cardiovascular Exam Cardiovascular Exam: +S1, +S2 - GI/Abdominal Exam GI & Abdominal Exam: Soft. absent: Tenderness Assessment and Plan - Assessment and Plan (Free Text) Plan: Assessment consider acute UTI in this patient with recurrent UTI's neuropathy gastroparesis recurrent UTI obesity with BMI 35 history of hip fracture Plan continue Merrem day 3; initial urine cx showed contamination - follow up repeat urine cx; blood cx are negative CT A/P , renal and bladder ultrasound are normal discussed with Dr. Chavarria previously
--- NOTE | 2017-09-07 21:00 | PN ---
DATE: 09/07/2017 SUBJECTIVE: The patient is 62 years old, seen and examined. She states she feels a little better. Her frequency of urination has decreased, burning has decreased. No history of nausea. The patient does have chronic constipation because of pelvic floor dysfunction and she really relieves by mechanical . OBJECTIVE: GENERAL: Today, she is awake and alert, able to communicate. VITAL SIGNS: She is afebrile. Pulse 73, respirations 20, and blood pressure 156/82. LUNGS: Bilateral fair airflow. No rhonchi or crackle. HEART: S1 and S2 audible. ABDOMEN: Soft, nontender. No rebound. No guarding. NEUROLOGIC: She is awake, alert, oriented, and communicative. LABORATORY EXAM: Sodium 139, potassium 4.5, chloride 97, CO2 of 31. BUN 20, creatinine 0.6. Blood sugar of 285. Blood cultures are negative. Urine cultures show probable contamination. Her renal ultrasound and pelvic ultrasound are unremarkable. CT scan of the abdomen and pelvis is also unremarkable. ASSESSMENT: 1. Multi drug resistant urinary tract infection. The patient has Pseudomonas aeruginosa that was cultured in the office. Currently, she is on meropenem. 2. Insulin-dependent diabetes. 3. Chronic constipation. 4. Pelvic floor muscle dysfunction. 5. Diabetic neuropathy. PLAN: Currently, the patient is on meropenem. We will continue that. We will continue the patient on current medication. We will give according to ID recommendation. Currently, she seems to be asymptomatic. Devi Chavarria MD
[2017-09-08] MEDS: Meropenem 500 MG in Sodium Chloride 0.9% 50 ML IVPB SCH ×3 (06:04→21:45)
[2017-09-08] MEDS: Insulin Lispro (HUMAlog) HIGH Coverage SC SCH ×4 (08:09→21:46)
[2017-09-08] MEDS: Bisacodyl 5mg EC Tab PO SCH (10:15)
[2017-09-08] MEDS: POLYETHYLENE GLYCOL 3350 17 GM/Dose PACKET PO SCH (10:15)
[2017-09-08] MEDS: Fluticasone Nasal 50 mcg/Spray NS SCH (10:17)
--- NOTE | 2017-09-08 11:33 | PN ---
DATE: 09/08/2017 HISTORY OF PRESENT ILLNESS: Ms. Carver is a 62-year-old female, admitted to the hospital with UTI. She fell and had right hip fracture. Underwent open reduction and fixation. Admitted with fever, chills, rigors. Has multidrug-resistant UTI. PAST MEDICAL HISTORY: Diabetes mellitus type 2, history of hypertension, sinus infection, pelvic floor muscle dysfunction. ALLERGIES: TO CODEINE AND SULFONAMIDE. HOME MEDICATIONS: Insulin, gabapentin, Micardis, Singulair, Lantus. SOCIAL HISTORY: Lives with the at home. REVIEW OF SYSTEMS: As per HPI. Rest of 12-point review of systems reviewed negative. PHYSICAL EXAMINATION: GENERAL: Comfortable in bed, in no acute distress. VITAL SIGNS: Temperature 98.7, heart rate 80 per minute, blood pressure 130/80. LUNGS: Air entry present and equal bilateral. No added sound. CARDIOVASCULAR: S1, S2 normal. No murmur. No gallop. ABDOMEN: Soft, nontender. No hepatosplenomegaly. EXTREMITY: No edema. NEUROLOGIC: Awake, alert, oriented x3. No focal sensorimotor deficit. LABORATORY DATA: White count 11.6, hemoglobin 13.8, platelet 312. Sodium 139, potassium 4.5, creatinine 0.6. MEDICATIONS: Dulcolax, Flonase, gabapentin, Humalog, meropenem every 8 hours, Singular, MiraLax, Zanaflex. ASSESSMENT: 1. Multidrug-resistant urinary tract infection. 2. Diabetes mellitus type 2. 3. Leukocytosis. 4. Recent hip fracture. PLAN: The patient is currently on IV antibiotic, meropenem. We will continue that. We will follow the recommendation on the antibiotics. Continue Neurontin. Leukocytosis. White count elevated to 11,000, likely due to UTI. We will repeat the blood count today. Sugey Heller MD
--- NOTE | 2017-09-08 13:08 | PN ---
DATE: 09/08/2017 SUBJECTIVE: The patient is in bed, no acute distress, nontoxic. PHYSICAL EXAMINATION: VITAL SIGNS: Temperature is 98, blood pressure is 125/60, respiratory rate of 20, heart rate of 79. HEENT: Examination of HEENT is unremarkable. NECK: Supple. LUNGS: Have decreased breath sounds. HEART: Normal S1, S2. ABDOMEN: Soft, nontender. LABORATORY DATA: Laboratory examination reveals a white count of 11,600, hemoglobin of 13. Chemistries reveals a BUN of 20, creatinine of 0.2. Urinalysis is noted. Microbiology reveals the blood cultures are no growth and urine cultures no growth. ASSESSMENT AND PLAN: A 62-year-old female, who was seen earlier today in 568, bed 1 with acute urinary tract infection with recurrent urinary tract infections and by history, neuropathy, gastroparesis and obesity, on meropenem day #4. Contamination of the initial urine culture and negative blood cultures. Waiting for repeat urine cultures. Meropenem is active. We will follow with you. Tyson Swan MD
[2017-09-08] MEDS ORDERED: POLYETHYLENE GLYCOL 3350 17 GM/Dose PACKET PO SCH (22:00)
[2017-09-09] MEDS: Meropenem 500 MG in Sodium Chloride 0.9% 50 ML IVPB SCH ×3 (05:44→21:20)
[2017-09-09 07:58] VITALS: RESP 20
[2017-09-09] MEDS: Insulin Lispro (HUMAlog) HIGH Coverage SC SCH ×3 (08:02→17:57)
[2017-09-09] MEDS: Bisacodyl 5mg EC Tab PO SCH (10:02)
[2017-09-09] MEDS: POLYETHYLENE GLYCOL 3350 17 GM/Dose PACKET PO SCH (10:03)
[2017-09-09] MEDS: Fluticasone Nasal 50 mcg/Spray NS SCH (10:04)
--- NOTE | 2017-09-09 16:10 | PN ---
DATE: 09/09/2017 SUBJECTIVE: The patient is seen in room 568. Patient has no fevers and no chills. No nausea. PHYSICAL EXAMINATION: VITAL SIGNS: Temperature is 97, blood pressure is 130/70, respiratory rate of 20, heart rate of 70. HEENT: Unremarkable. NECK: Supple. LUNGS: Decreased breath sounds. HEART: Normal S1, S2. ABDOMEN: Soft, nontender. LABORATORY EXAMINATION: Reveals a white count of 11,600, hemoglobin of 13, platelets of 312. Chemistries are noted. BUN of 20, creatinine of 0.6. Urinalysis is noted. Microbiology reveals the urine cultures are gram-negative jerry from the 14th. The repeat urine culture is no growth. Dr. Heller's note is reviewed from yesterday. ASSESSMENT AND PLAN: A 62-year-old female with acute urinary tract infection, recurrent urinary tract infections by history, gastroparesis, obesity on meropenem day #5. Awaiting for the identification sensitivity of gram-negative jerry in the urine. Review of orders reveals the meropenem requiring renewal, which I will order renew, to continue meropenem. Tyson Swan MD
--- NOTE | 2017-09-09 18:57 | PN ---
DATE: 09/09/2017 FOLLOWUP NOTE SUBJECTIVE: Comfortable in bed, in no acute distress, ambulating. Urine cultures, sensitivity and identification pending. Currently on IV antibiotic, meropenem, day 5. No fever. No cough with expectoration. She had a recent right hip surgery. REVIEW OF SYSTEMS: As per HPI. Rest of 40-[id number]-aothfg of systems reviewed negative. PHYSICAL EXAMINATION: GENERAL: Comfortable in bed, in no acute distress. VITAL SIGNS: Temperature 98.5, heart rate is 80 per minute, blood pressure 120/70. CHEST: Air entry present and equal, bilateral. No added sound. CARDIOVASCULAR: S1, S2 normal. No murmur. No gallop. ABDOMEN: Soft, nontender. No hepatosplenomegaly. EXTREMITIES: No edema. NEUROLOGIC: Awake, alert, oriented x3. No focal sensorimotor deficit. LABORATORY DATA: Labs reviewed. MEDICATIONS: Dulcolax, Flonase, meropenem, Singulair, MiraLax, Zanaflex. ASSESSMENT: 1. Urinary tract infection. 2. Leukocytosis. 3. Diabetes mellitus type 2. 4. Right hip fracture, recent, postoperative. PLAN: We will continue antibiotic as per ID. Sensitivity is pending. Continue Neurontin. Leukocytosis improved. Ambulating without problem. Labs ordered for tomorrow. Sugey Heller MD
[2017-09-09] MEDS ORDERED: POLYETHYLENE GLYCOL 3350 17 GM/Dose PACKET PO SCH (22:00)
[2017-09-10] MEDS: Meropenem 500 MG in Sodium Chloride 0.9% 50 ML IVPB SCH ×2 (05:21→13:41)
[2017-09-10] MEDS: Insulin Lispro (HUMAlog) HIGH Coverage SC SCH ×3 (08:00→16:00)
[2017-09-10] MEDS: Fluticasone Nasal 50 mcg/Spray NS SCH (10:30)
[2017-09-10] MEDS: Bisacodyl 5mg EC Tab PO SCH (10:33)
--- NOTE | 2017-09-10 12:33 | DS ---
HISTORY OF PRESENT ILLNESS: The patient is 62 years old, seen and examined, lying in the bed, seems to be comfortable. She still has symptoms that are much better, but still has burning. Frequency of urination has decreased. PHYSICAL EXAMINATION: VITAL SIGNS: She is afebrile. Pulse 76, respirations 20, blood pressure 142/85. LUNGS: Bilateral fair airflow. No rhonchi or crackle. HEART: S1, S2 audible. ABDOMEN: Soft, nontender. No rebound. No guarding. NEUROLOGIC: She is awake, alert, oriented, communicative. LABORATORY DATA: Blood sugar is 97. Her urine grew gram-negative rods on culture sent on 09/06/2017, but no growth less than 1000 colony count. ASSESSMENT AND PLAN: 1. Failed outpatient treatment. 2. Pseudomonas urinary tract infection. 3. Insulin-dependent diabetes. 4. Hypertension. 5. Pelvic floor muscular dysfunction. 6. Recurrent urinary tract infection. PLAN: Currently, the patient is on meropenem. I will discuss with Dr. Swan and the patient will be discharged later on today. Devi Chavarria MD
[2017-09-10 16:10] VITALS: BP 156/85; PULSE 86; TEMP 98.2; O2SAT 96
--- NOTE | 2017-09-10 16:18 | PCM.URO ---
Urology Progress Note - Subjective Abdominal Pain: Yes - Objective Lab Studies: Reviewed (no gu change for now) Lab Results Last 24 Hours: Laboratory Results - last 24 hr 09/10/17 09/10/17 06:21 11:08 POC Glucose (mg/dL) 148 H 97 Intake & Output: Intake & Output 09/09/17 09/10/17 09/10/17 18:59 06:59 18:59 Intake Total 660 900 Output Total 2 Balance 658 900 Intake: Oral 660 900 Output: Urine 2 Urine, Voided 2 Other: # Voids Urine, Voided 3 4 # Bowel Movements 0 0 Vital Signs: Vital Signs - 24 hr 09/10/17 09/10/17 06:00 14:00 Temperature 97.4 F L 98.2 F Pulse Rate 76 86 Respiratory 20 20 Rate Blood Pressure 142/85 156/85 H O2 Sat by Pulse 97 96 Oximetry
--- NOTE | 2017-09-10 16:32 | CP.PCM.PN ---
Subjective - Date & Time of Evaluation Date of Evaluation: 09/10/17 Time of Evaluation: 14:55 - Subjective Subjective: Patient states she has not had urinary symptoms for the past 2 days now, no fevers, wants to go home. Objective - Vital Signs/Intake and Output Vital Signs (last 24 hours): Temp Pulse Resp BP Pulse Ox 97.4 F L 76 20 142/85 97 09/10/17 06:00 09/10/17 06:00 09/10/17 06:00 09/10/17 06:00 09/10/17 06:00 Intake and Output: 09/10/17 09/10/17 06:59 18:59 Intake Total 660 Output Total 2 Balance 658 - Medications Medications: Current Medications Bisacodyl (Dulcolax) 5 mg PO DAILY [facility] Last Admin: 09/10/17 10:33 Dose: 5 mg Fluticasone Propionate (Flonase) 1 actuation NS DAILY [facility] Last Admin: 09/09/17 10:04 Dose: 1 mcg Gabapentin (Neurontin) 200 mg PO TID TIN PRN Reason: Protocol Last Admin: 09/10/17 10:33 Dose: 200 mg Meropenem 500 mg/ Sodium (Chloride) 50 mls @ 100 mls/hr IVPB Q8 TIN PRN Reason: Protocol Stop: 09/11/17 22:01 Last Admin: 09/10/17 05:21 Dose: 100 mls/hr Insulin Human Lispro (Humalog High) 0 units SC ACHS TIN PRN Reason: Protocol Last Admin: 09/10/17 11:23 Dose: Not Given Polyethylene Glycol (Miralax) 17 gm PO DAILY [facility] Last Admin: 09/09/17 10:03 Dose: Not Given Polyethylene Glycol (Miralax) 17 gm PO BID [facility] Last Admin: 09/10/17 10:33 Dose: 17 gm Tizanidine HCl (Zanaflex) 4 mg PO TID PRN PRN Reason: back spasm - Labs Labs: 09/07/17 07:00 PT 11.1 SECONDS (9.4-12.5) 09/04/17 17:19 INR 0.97 (0.93-1.08) 09/04/17 17:19 APTT 27.3 Seconds (25.1-36.5) 09/04/17 17:19 - Constitutional Appears: Non-toxic, Chronically Ill - Head Exam Head Exam: NORMAL INSPECTION - Respiratory Exam Respiratory Exam: Decreased Breath Sounds - Cardiovascular Exam Cardiovascular Exam: +S1, +S2 - GI/Abdominal Exam GI & Abdominal Exam: Soft. absent: Tenderness Assessment and Plan - Assessment and Plan (Free Text) Plan: Assessment consider acute UTI in this patient with recurrent UTI's, grew Pseudomonas sensitive to Merrem at her PMD's office neuropathy gastroparesis recurrent UTI obesity with BMI 35 history of hip fracture Plan actually day 7 of Merrem today; repeat urine cx finally negative - since CT A/P , renal and bladder ultrasound are normal, urine cx have cleared, patient is clinically better, may d/c antibiotics and observe as outpatient - discussed with patient that there is still a risk that the UTI may recur and she needs to be vigilant in monitoring her urinary symptoms - patient agrees and understands discussed with Dr. Chavarria - patient to follow up with Dr. Chavarria as outpatient
== END 2017-09-10 20:17 | disposition home or self-care (01) | DRG 690 ==
LOC: ED 15:39 → ERH 17:55 → 5RNO 22:06
PROVIDERS: ADMIT Internal Medicine; ATTEND Internal Medicine
DX: N39.0 Urinary tract infection, site not specified (principal); B96.5 Pseudomonas (aeruginosa) (mallei) (pseudomallei) as the cause of diseases classified elsewhere; I10 Essential (primary) hypertension; Z16.24 Resistance to multiple antibiotics; K59.09 Other constipation; E11.43 Type 2 diabetes mellitus with diabetic autonomic (poly)neuropathy; E11.65 Type 2 diabetes mellitus with hyperglycemia; K31.84 Gastroparesis; R35.0 Frequency of micturition; R32 Unspecified urinary incontinence; E66.9 Obesity, unspecified; Z68.35 Body mass index [BMI] 35.0-35.9, adult; Z79.4 Long term (current) use of insulin; Z87.440 Personal history of urinary (tract) infections; Z87.81 Personal history of (healed) traumatic fracture